=== PATIENT | female | born 1985 | race African-American/Black ===

== ENCOUNTER 2020-08-18 18:29 | Inpatient (IN) | payer OTHER ==
[2020-08-18] MEDS ORDERED: ALBUTEROL 2.5 MG/3 ML NEBU IH ONE (20:43)
[2020-08-18] MEDS ORDERED: ACETAMINOPHEN 325 MG TAB PO ONE (20:46)
--- NOTE | 2020-08-18 20:47 | Event Note ---
ED Screening Note Date of service: 08/18/20 Time: 20:45 ED Screening Note: This initial assessment/diagnostic orders/clinical plan/treatment(s) is/are subject to change based on patients health status, clinical progression and re- assessment by fellow clinical providers in the ED. Further treatment and workup at subsequent clinical providers discretion. Patient/guardian urged not to elope from the ED as their condition may be serious if not clinically assessed and managed. Initial orders include: This is a 34-year-old female she comes in stating that she has been Covid positive for 1 week and now with fever cough and short of breath. Her past medical history is of asthma. Her temperature is 102.7 lungs with decreased breath sounds few scattered wheezes. Labs chest x-ray
[2020-08-18 21:07] LABS: Hematocrit 28.1 % (30.3-42.9); Hemoglobin 8.5 gm/dl (10.1-14.3); Mean Corpuscular HGB Conc 30 % (30-34); Platelet Count 435 K/mm3 (140-440); Red Blood Count 5.19 M/mm3 (3.65-5.03); Red Cell Distribution Width 19.9 % (13.2-15.2)
[2020-08-18 21:17] LABS: Mean Corpuscular Volume 54 fl (79-97)
--- NOTE | 2020-08-18 21:23 | XRay Report ---
CHEST PA AND LATERAL VIEWS INDICATION: COVID +SOB. COMPARISON: 06/18/2018 FINDINGS: Support devices: None Heart: Normal and unchanged Lungs/Pleura: Moderately extensive, patchy bilateral lung disease, consistent with Covid pneumonia. IMPRESSION: 1. Moderate bilateral lung disease. Signer Name: Arnulfo Minaya MD Signed: 08/18/2020 9:19 PM Workstation Name: [id number]
[2020-08-18 21:30] LABS: Blood Urea Nitrogen 8 mg/dL (7-17); Calcium 8.8 mg/dL (8.4-10.2); Hemolysis Index 0
[2020-08-18 21:31] LABS: BUN/Creatinine Ratio 13
--- NOTE | 2020-08-18 21:31 | Emergency Department Report ---
ED Shortness of Breath HPI - General Chief Complaint: Dyspnea/Respdistress Stated Complaint: BREATHING ISSUES/HEADACHE/COVID Time Seen by Provider: 08/18/20 21:18 Source: patient Mode of arrival: Ambulatory Limitations: No Limitations - History of Present Illness Initial Comments: 34-year-old female, history of asthma, PCOS, presents to ED with difficulty breathing. Patient is Covid positive. She has been symptomatic for the last week, reporting fever, cough, shortness of breath, body aches, loss of smell and taste. Patient states she has been using her inhaler and nebulizer machine at home without relief. Patient states she contracted Covid from her mother whom she lives with. MD Complaint: shortness of breath -: week(s) (1) Severity: moderate Consistency: constant Improves With: nothing Worsens With: exertion Known History Of: asthma Context: recent URI Associated Symptoms: fever, cough Treatments Prior to Arrival: bronchodilator - Related Data Home Oxygen Therapy: No Home Medications Medication Instructions Recorded Confirmed Last Taken Montelukast 10 mg PO HS 08/19/20 08/19/20 Unknown Previous Rx's Medication Instructions Recorded Last Taken Type Azithromycin [Zithromax Z-ELVIS] 250 mg PO DAILY #1 pack 06/18/18 Unknown Rx Lansoprazole [Prevacid] 15 mg PO BID #30 cap 06/18/18 Unknown Rx Allergies Allergy/AdvReac Type Severity Reaction Status Date / Time No Known Allergies Allergy Unverified 06/18/18 10:20 ED Review of Systems ROS: Stated complaint: BREATHING ISSUES/HEADACHE/COVID Other details as noted in HPI Comment: All other systems reviewed and negative Constitutional: fever ENT: other (Reports loss of smell and taste) Respiratory: cough, shortness of breath Musculoskeletal: myalgia ED Past Medical Hx - Past Medical History Previous Medical History?: Yes Hx Hypertension: Yes Hx Asthma: Yes Additional medical history: PCOS - Surgical History Past Surgical History?: Yes Additional Surgical History: HERNIA/ CYST/ SINUS / TUBAL - Social History Smoking Status: Never Smoker Substance Use Type: None - Medications Home Medications: Home Medications Medication Instructions Recorded Confirmed Last Taken Type Azithromycin [Zithromax Z-ELVIS] 250 mg PO DAILY #1 pack 06/18/18 08/19/20 Unknown Rx Lansoprazole [Prevacid] 15 mg PO BID #30 cap 06/18/18 08/19/20 Unknown Rx Montelukast 10 mg PO HS 08/19/20 08/19/20 Unknown History ED Physical Exam - General Limitations: No Limitations General appearance: alert - Head Head exam: Present: atraumatic, normocephalic - Eye Eye exam: Present: normal appearance, EOMI - ENT ENT exam: Present: mucous membranes moist - Neck Neck exam: Present: normal inspection - Respiratory Respiratory exam: Present: normal lung sounds bilaterally, other (Tachypneic). Absent: wheezes - Cardiovascular Cardiovascular Exam: Present: normal rhythm, tachycardia - GI/Abdominal GI/Abdominal exam: Present: soft. Absent: distended, tenderness - Extremities Exam Extremities exam: Present: normal inspection. Absent: pedal edema, calf tenderness - Neurological Exam Neurological exam: Present: alert, oriented X3 - Psychiatric Psychiatric exam: Present: normal affect, normal mood - Skin Skin exam: Present: warm, dry, intact, normal color ED Course Vital Signs 08/18/20 08/18/20 08/18/20 20:28 20:41 22:25 Temperature 102.7 F H 98.7 F Pulse Rate 135 H 102 H Respiratory 22 20 26 H Rate Blood Pressure 149/84 152/74 Blood Pressure [Right] O2 Sat by Pulse 88 95 Oximetry 08/18/20 08/18/20 08/19/20 22:34 23:00 00:00 Temperature 98.9 F Pulse Rate 121 H 119 H 113 H Respiratory 28 H 28 H 22 Rate Blood Pressure Blood Pressure 127/81 131/82 118/76 [Right] O2 Sat by Pulse 97 95 95 Oximetry ED Medical Decision Making - Lab Data Result diagrams: 08/18/20 20:45 08/18/20 21:53 - EKG Data -: EKG Interpreted by [facility] EKG shows normal: sinus rhythm, axis, intervals, QRS complexes, ST-T waves Rate: tachycardia - EKG Data Interpretation: no acute changes - Radiology Data Radiology results: report reviewed, image reviewed - Medical Decision Making 34-year-old female with COVID-19 presents to ED with difficulty breathing. O2 sats 88% on room air. Patient requiring 4 L O2 via nasal cannula. Chest x-ray shows bilateral pneumonia. Blood cultures drawn. Patient given Rocephin, azithromycin, Decadron. Patient will be admitted to hospitalist, Dr. Vanegas, for further management. - Differential Diagnosis Pneumonia, COVID-19 Critical Care Time: Yes Critical care time in (mins) excluding proc time.: 35 Critical care attestation.: If time is entered above; I have spent that time in minutes in the direct care of this critically ill patient, excluding procedure time. Critical Care Time: 35 min ED Disposition Clinical Impression: Acute hypoxemic respiratory failure due to COVID-19, Pneumonia Disposition: [id number] OP ADMIT IP TO THIS HOSP Is pt being admited?: Yes Condition: Stable Time of Disposition: 22:53
[2020-08-18] MEDS ORDERED: DEXAMETHASONE 4 MG TAB PO ONE (21:32)
[2020-08-18] MEDS ORDERED: cefTRIAXone/NS 1 GM/50 ML 1 GM/50 ML BAG IV ONE (21:32)
[2020-08-18] MEDS ORDERED: AZITHROMYCIN 250 MG TAB PO ONE (21:32)
[2020-08-18 22:46] LABS: INR 0.91 (0.87-1.13)
[2020-08-18 22:47] LABS: Alanine Aminotransferase 39 units/L (7-56); Albumin 3.8 g/dL (3.9-5); Partial Thromboplastin Time 35.8 Sec. (24.2-36.6)
[2020-08-18 22:54] LABS: Bilirubin,Direct < 0.2 mg/dL (0-0.2)
[2020-08-18 23:19] LABS: Anisocytosis Few; Hypochromasia 1+; Total Cells Counted 100
[2020-08-18] MEDS ORDERED: ONDANSETRON 4 MG/2 ML INJ IV PRN (23:26)
[2020-08-18] MEDS ORDERED: MAGNESIUM HYDROXIDE (MOM) ORAL LIQD UDC PO PRN (23:26)
[2020-08-18] MEDS ORDERED: MORPHINE 2 MG/1 ML INJ IV PRN (23:26)
[2020-08-18] MEDS ORDERED: ACETAMINOPHEN 325 MG TAB PO PRN (23:26)
--- NOTE | 2020-08-18 23:36 | History and Physical Report ---
History of Present Illness Date of examination: 08/18/20 Date of admission: 08/18/2020 Chief complaint: Cough Shortness of breath History of present illness: 34-year-old female with known history of asthma, hypertension presenting to the emergency room today complaining of difficulty breathing for about 1 week. She was diagnosed with COVID-19 at an outside facility sometime last week. She has had some fever, cough, generalized body aches and pain, loss of taste and smell. Patient denies any nausea vomiting, no abdominal pain, no hematuria or dysuria, no headache or dizziness. Patient has used her nebulizing treatment at home without any significant improv ement. Patient indicates that mother whom she lives with at home is also Covid positive. Work-up in the emergency room reveals bilateral infiltrate on the chest x-ray. Patient admitted with pneumonia secondary to COVID-19. Past History Past Medical History: hypertension, other (Asthma) Past Surgical History: hernia repair, Other (Sinus surgery, tubal ligation) Social history: no significant social history Family history: no significant family history Medications and Allergies Allergies Allergy/AdvReac Type Severity Reaction Status Date / Time No Known Allergies Allergy Unverified 06/18/18 10:20 Home Medications Medication Instructions Recorded Confirmed Last Taken Type Azithromycin [Zithromax Z-ELVIS] 250 mg PO DAILY #1 pack 06/18/18 08/19/20 Unknown Rx Lansoprazole [Prevacid] 15 mg PO BID #30 cap 06/18/18 08/19/20 Unknown Rx Montelukast 10 mg PO HS 08/19/20 08/19/20 Unknown History Active Meds: Active Medications Acetaminophen (Acetaminophen 325 Mg Tab) 650 mg PO Q4H PRN PRN Reason: Pain MILD(1-3)/Fever >100.5/CARPENTER Enoxaparin Sodium (Enoxaparin 40 Mg/0.4 Ml Inj) 40 mg SUB-Q QDAY@2200 VANESA; Protocol Ceftriaxone Sodium (Rocephin/Ns 2 Gm/100 Ml) 2 gm in 100 mls @ 200 mls/hr IV Q24H VANESA; Protocol Azithromycin (Zithromax/Ns) 500 mg in 250 mls @ 250 mls/hr IV Q24H VANESA; Protocol Magnesium Hydroxide (Magnesium Hydroxide (Mom) Oral Liqd Udc) 30 ml PO Q4H PRN PRN Reason: Constipation Morphine Sulfate (Morphine 2 Mg/1 Ml Inj) 2 mg IV Q4H PRN PRN Reason: Pain, Moderate (4-6) Ondansetron HCl (Ondansetron 4 Mg/2 Ml Inj) 4 mg IV Q8H PRN PRN Reason: Nausea And Vomiting Sodium Chloride (Sodium Chloride 0.9% 10 Ml Flush Syringe) 10 ml IV BID VANESA Sodium Chloride (Sodium Chloride 0.9% 10 Ml Flush Syringe) 10 ml IV PRN PRN PRN Reason: LINE FLUSH Review of Systems Constitutional: fever, chills Ears, nose, mouth and throat: no nasal congestion, no sore throat Cardiovascular: no chest pain, no palpitations Respiratory: cough, shortness of breath Gastrointestinal: no abdominal pain, no nausea, no vomiting, no diarrhea Genitourinary Female: no pelvic pain, no flank pain, no dysuria, no hematuria Musculoskeletal: no neck pain, no low back pain Integumentary: no rash, no pruritis Neurological: no headaches, no confusion Psychiatric: no anxiety, no depression Exam - Constitutional Vitals: Temp Pulse Resp BP Pulse Ox 102.7 F H 121 H 28 H 127/81 97 08/18/20 20:28 08/18/20 22:34 08/18/20 22:34 08/18/20 22:34 08/18/20 22:34 General appearance: Present: no acute distress, well-nourished - EENT Eyes: Present: PERRL, EOM intact. Absent: scleral icterus ENT: hearing intact, clear oral mucosa, dentition normal - Neck Neck: Present: normal ROM - Respiratory Respiratory effort: normal Respiratory: bilateral: diminished - Cardiovascular Rhythm: regular Heart Sounds: Present: S1 & S2. Absent: gallop, systolic murmur, diastolic murmur, rub - Extremities Extremities: no ischemia, pulses intact, pulses symmetrical, No edema, Full ROM Peripheral Pulses: within normal limits - Abdominal General gastrointestinal: Present: soft, non-tender, non-distended, normal bowel sounds. Absent: mass - Integumentary Integumentary: Present: clear, warm, dry. Absent: rash - Musculoskeletal Musculoskeletal: strength equal bilaterally - Psychiatric Psychiatric: appropriate mood/affect, intact judgment & insight, memory intact, cooperative - Neurologic Neurologic: CNII-XII intact, no focal deficits, moves all extremities Results - Labs CBC & Chem 7: 08/18/20 20:45 08/18/20 21:53 Labs: Abnormal lab results 08/18/20 08/18/20 08/18/20 Range/Units 20:45 20:45 21:53 RBC 5.19 H (3.65-5.03) M/mm3 Hgb 8.5 L (10.1-14.3) gm/dl Hct 28.1 L (30.3-42.9) % MCV 54 L (79-97) fl MCH 16 L (28-32) pg RDW 19.9 H (13.2-15.2) % Seg Neuts % (Manual) 76.0 H (40.0-70.0) % Lymphocytes # (Manual) 1.0 L (1.2-5.4) K/mm3 PT 12.1 L (12.2-14.9) Sec. D-Dimer 284.01 H (0-234) ng/mlDDU Sodium 136 L (137-145) mmol/L Glucose 125 H (65-100) mg/dL Alkaline Phosphatase (35-129) units/L Albumin (3.9-5) g/dL 08/18/20 Range/Units 21:53 RBC (3.65-5.03) M/mm3 Hgb (10.1-14.3) gm/dl Hct (30.3-42.9) % MCV (79-97) fl MCH (28-32) pg RDW (13.2-15.2) % Seg Neuts % (Manual) (40.0-70.0) % Lymphocytes # (Manual) (1.2-5.4) K/mm3 PT (12.2-14.9) Sec. D-Dimer (0-234) ng/mlDDU Sodium (137-145) mmol/L Glucose 126 H (65-100) mg/dL Alkaline Phosphatase 138 H (35-129) units/L Albumin 3.8 L (3.9-5) g/dL Assessment and Plan - Patient Problems (1) Pneumonia Current Visit: Yes Status: Acute Plan to address problem: Placed on empiric IV antibiotics. We will await culture results. (2) Acute hypoxemic respiratory failure due to COVID-19 Current Visit: Yes Status: Acute Plan to address problem: Possibly secondary to the underlying pneumonia with Covid. She was diagnosed with COVID-19 about a week ago. We will keep O2 saturation greater or equal to 94%. Consult will be placed to infectious disease and pulmonology for evaluation and recommendation. (3) DVT prophylaxis Current Visit: Yes Status: Acute Plan to address problem: Patient placed on subcutaneous Lovenox. (4) Full code status Current Visit: Yes Status: Acute Plan to address problem: Patient is a full code.
[2020-08-19 06:09] LABS: Mean Corpuscular HGB Conc 29 % (30-34); Platelet Count 404 K/mm3 (140-440); Red Blood Count 4.97 M/mm3 (3.65-5.03); Red Cell Distribution Width 19.5 % (13.2-15.2)
[2020-08-19 06:13] LABS: Hematocrit 27.4 % (30.3-42.9); Mean Corpuscular Volume 55 fl (79-97)
[2020-08-19 06:20] LABS: INR 0.98 (0.87-1.13)
[2020-08-19 06:32] LABS: Blood Urea Nitrogen 11 mg/dL (7-17); Calcium 8.6 mg/dL (8.4-10.2); Hemolysis Index 3
[2020-08-19 06:36] LABS: BUN/Creatinine Ratio 22
[2020-08-19 07:14] LABS: Total Cells Counted 100
[2020-08-19 07:15] LABS: Anisocytosis 1+; Hypochromasia 1+; Platelet Estimate Consistent w Auto
[2020-08-19] MEDS: cefTRIAXone/NS 2 GM/100 ML 2 GM/100 ML BAG IV SCH (09:01)
[2020-08-19] MEDS ORDERED: dexAMETHasone 4 MG/ML VIAL IV SCH (10:00)
--- NOTE | 2020-08-19 10:34 | Consultation ---
History of Present Illness - Reason for Consult Consult date: 08/19/20 - History of Present Illness 34-year-old female past medical history asthma, hypertension, obesity presented to the hospital complaining of shortness of breath. This began approximately 1 week prior to admission, and she was diagnosed with COVID-19 as an outpatient last week. She complains of associated fevers, cough, myalgias. She otherwise denies any symptoms. She notes that her mother is also Covid positive with whom she lives. Febrile on admission 102.7 with tachycardia and tachypnea. Currently on ceftriaxone and azithromycin. White count 4.7, elevated inflammatory markers. Covid testing pending. Imaging personally reviewed: Chest x-ray: Moderate bilateral lung disease Review of systems: Deferred due to PPE conservation strategy. Past History Past Medical History: hypertension, other (Asthma) Past Surgical History: hernia repair, Other (Sinus surgery, tubal ligation) Social history: no significant social history Family history: no significant family history Medications and Allergies Allergies Allergy/AdvReac Type Severity Reaction Status Date / Time No Known Allergies Allergy Unverified 06/18/18 10:20 Home Medications Medication Instructions Recorded Confirmed Last Taken Type Azithromycin [Zithromax Z-ELVIS] 250 mg PO DAILY #1 pack 06/18/18 08/19/20 Unknown Rx Lansoprazole [Prevacid] 15 mg PO BID #30 cap 06/18/18 08/19/20 Unknown Rx Montelukast 10 mg PO HS 08/19/20 08/19/20 Unknown History Active Meds: Active Medications Acetaminophen (Acetaminophen 325 Mg Tab) 650 mg PO Q4H PRN PRN Reason: Pain MILD(1-3)/Fever >100.5/[place] Dexamethasone (Dexamethasone 4 Mg/Ml Vial) 6 mg IV Q24HR VANESA Last Admin: 08/19/20 09:01 Dose: 6 mg Documented by: Enoxaparin Sodium (Enoxaparin 40 Mg/0.4 Ml Inj) 40 mg SUB-Q QDAY@2200 VANESA; Protocol Ceftriaxone Sodium (Rocephin/Ns 2 Gm/100 Ml) 2 gm in 100 mls @ 200 mls/hr IV Q24HR VANESA; Protocol Last Admin: 08/19/20 09:01 Dose: 200 mls/hr Documented by: Azithromycin (Zithromax/Ns) 500 mg in 250 mls @ 250 mls/hr IV Q24HR VANESA; Protocol Magnesium Hydroxide (Magnesium Hydroxide (Mom) Oral Liqd Udc) 30 ml PO Q4H PRN PRN Reason: Constipation Morphine Sulfate (Morphine 2 Mg/1 Ml Inj) 2 mg IV Q4H PRN PRN Reason: Pain, Moderate (4-6) Ondansetron HCl (Ondansetron 4 Mg/2 Ml Inj) 4 mg IV Q8H PRN PRN Reason: Nausea And Vomiting Sodium Chloride (Sodium Chloride 0.9% 10 Ml Flush Syringe) 10 ml IV BID VANESA Last Admin: 08/19/20 09:02 Dose: 10 ml Documented by: Sodium Chloride (Sodium Chloride 0.9% 10 Ml Flush Syringe) 10 ml IV PRN PRN PRN Reason: LINE FLUSH Physical Examination - Physical Exam Narrative exam: Physical exam deferred due to PPE conservation strategy. Please refer to primary team's note. - Constitutional Vitals: Vital Signs Temp Pulse Resp BP Pulse Ox 98.8 F 100 H 22 103/62 88 08/19/20 05:16 08/19/20 05:16 08/19/20 05:16 08/19/20 05:16 08/19/20 05:16 Temperature -Last 24 Hours Temperature 98.8 F Temperature 99.9 F Temperature 98.9 F Temperature 98.7 F Temperature 102.7 F Results - Labs CBC & Chem 7: 08/19/20 05:00 08/19/20 05:00 Labs: Abnormal lab results 08/18/20 08/18/20 08/18/20 Range/Units 20:45 20:45 21:53 RBC 5.19 H (3.65-5.03) M/mm3 Hgb 8.5 L (10.1-14.3) gm/dl Hct 28.1 L (30.3-42.9) % MCV 54 L (79-97) fl MCH 16 L (28-32) pg MCHC (30-34) % RDW 19.9 H (13.2-15.2) % Seg Neuts % (Manual) 76.0 H (40.0-70.0) % Lymphocytes # (Manual) 1.0 L (1.2-5.4) K/mm3 PT 12.1 L (12.2-14.9) Sec. D-Dimer 284.01 H (0-234) ng/mlDDU Sodium 136 L (137-145) mmol/L Creatinine (0.6-1.2) mg/dL Glucose 125 H (65-100) mg/dL Alkaline Phosphatase (35-129) units/L Lactate Dehydrogenase (91-180) units/L C-Reactive Protein (0.00-1.30) mg/dL Albumin (3.9-5) g/dL 08/18/20 08/19/20 08/19/20 Range/Units 21:53 05:00 05:00 RBC (3.65-5.03) M/mm3 Hgb 8.0 L (10.1-14.3) gm/dl Hct 27.4 L (30.3-42.9) % MCV 55 L (79-97) fl MCH 16 L (28-32) pg MCHC 29 L (30-34) % RDW 19.5 H (13.2-15.2) % Seg Neuts % (Manual) 78.0 H (40.0-70.0) % Lymphocytes # (Manual) 0.8 L (1.2-5.4) K/mm3 PT (12.2-14.9) Sec. D-Dimer (0-234) ng/mlDDU Sodium (137-145) mmol/L Creatinine 0.5 L (0.6-1.2) mg/dL Glucose 126 H 176 H (65-100) mg/dL Alkaline Phosphatase 138 H (35-129) units/L Lactate Dehydrogenase 534 H (91-180) units/L C-Reactive Protein 7.60 H (0.00-1.30) mg/dL Albumin 3.8 L (3.9-5) g/dL Assessment and Plan Cultures: Blood culture pending COVID-19 positive as an outpatient A/P: 34-year-old female past medical history obesity, asthma, hypertension admitted with bilateral pneumonia #Acute hypoxemic respiratory failure: Likely secondary to COVID-19 infection. Hypoxic on admission to 88% #Acute sepsis: Present with fevers, tachycardia, tachypnea. Secondary to COVID- 19 #COVID-19 pneumonia: Patient presented with a week of symptoms, chest x-ray with bilateral infiltrates, admission O2 sats 88&% on room air. Inflammatory markers elevated #Obesity Recs: -Dexamethasone 6 mg IV/PO daily for 10 days -Remdesivir 200 mg IV q day x 1 followed by 100 mg IV q day x 4 days -Obtain q48-72h inflammatory markers - ferritin, Ddimer, CRP, LDH -Continue ceftriaxone 2 gm IV qday and azithromycin 500 mg PO qday, if procalcitonin <0.25 ng/mL stop antibiotics -Anticoagulation per hospital protocol -Proning as able Thank you for the consult, we will continue to follow. Tia Patterson MD [facility] O: [phone] F: [phone]
[2020-08-19] MEDS: AZITHROMYCIN/NS 500 MG/250 ML 500 MG/250 ML BAG IV SCH (11:28)
[2020-08-19] MEDS ORDERED: REMDESIVIR 200 MG in SODIUM CHLORIDE 0.9% 250ML 250 ML IV ONE (11:30)
[2020-08-19] MEDS ORDERED: REMDESIVIR 100 MG VIAL IV ONE (11:30)
--- NOTE | 2020-08-19 12:22 | Progress Note ---
Assessment and Plan Assessment and plan: 34-year-old female with known history of asthma, hypertension presenting to the emergency room today complaining of difficulty breathing for about 1 week. She was diagnosed with COVID-19 at an outside facility sometime last week. She has had some fever, cough, generalized body aches and pain, loss of taste and smell. Patient denies any nausea vomiting, no abdominal pain, no hematuria or dysuria, no headache or dizziness. Patient has used her nebulizing treatment at home without any significant im provement. Patient indicates that mother whom she lives with at home is also Covid positive. Patient admitted with pneumonia secondary to COVID-19. Chest x-ray shows bilateral pulmonary Acute hypoxemic respiratory failure Sepsis secondary to Covid pneumonia Covid pneumonia Obesity Plan Continue dexamethasone and remdesivir as prescribed by infectious disease physician Inflammatory markers every 48-72 hours Antibiotics. While awaiting procalcitonin Patient was saturating 88% while on room air on admission if no improvement in respiratory status in a.m. we will obtain pulmonary consult We will start patient on vitamins in addition to incentive spirometer. Encourage patient to prone DVT and GI prophylaxis Weight loss management discussed in detail History Interval history: Patient seen and examined reports some cough and shortness of breath still. Hospitalist Physical - Physical exam Narrative exam: VITAL SIGNS: Reviewed. GENERAL: The patient appears normally developed, Vital signs as documented. HEAD: No signs of head trauma. EYES: Pupils are equal. Extraocular motions intact. EARS: Hearing grossly intact. MOUTH: Oropharynx is normal. NECK: No adenopathy, no JVD. CHEST: Chest with diminished breath sounds bilaterally. No wheezes, rales, or rhonchi. CARDIAC: Regular rate and rhythm. S1 and S2, without murmurs, gallops, or rubs. VASCULAR: No Edema. Peripheral pulses normal and equal in all extremities. ABDOMEN: Soft, non tender and non distended. No rebound or guarding, and no masses palpated. Bowel Sounds normal. MUSCULOSKELETAL: Good range of motion of all major joints. Extremities without clubbing, cyanosis or edema. NEUROLOGIC EXAM: Alert and oriented x 3 No focal sensory or strength deficits. Speech normal. Follows commands. PSYCHIATRIC: Mood normal. SKIN: detail exam as documented in skin assessment - Constitutional Vitals: Temp Pulse Resp BP Pulse Ox 98.8 F 100 H 22 103/62 88 08/19/20 05:16 08/19/20 05:16 08/19/20 05:16 08/19/20 05:16 08/19/20 05:16 General appearance: Present: no acute distress, well-nourished Results - Labs CBC & Chem 7: 08/19/20 05:00 08/19/20 05:00 Labs: Laboratory Last Values WBC 4.7 K/mm3 (4.5-11.0) 08/19/20 05:00 RBC 4.97 M/mm3 (3.65-5.03) 08/19/20 05:00 Hgb 8.0 gm/dl (10.1-14.3) L 08/19/20 05:00 Hct 27.4 % (30.3-42.9) L 08/19/20 05:00 MCV 55 fl (79-97) L 08/19/20 05:00 MCH 16 pg (28-32) L 08/19/20 05:00 MCHC 29 % (30-34) L 08/19/20 05:00 RDW 19.5 % (13.2-15.2) H 08/19/20 05:00 Plt Count 404 K/mm3 (140-440) 08/19/20 05:00 Add Manual Diff Complete 08/19/20 05:00 Total Counted 100 08/19/20 05:00 Seg Neuts % (Manual) 78.0 % (40.0-70.0) H 08/19/20 05:00 Band Neutrophils % 1.0 % 08/19/20 05:00 Lymphocytes % (Manual) 17.0 % (13.4-35.0) 08/19/20 05:00 Reactive Lymphs % (Man) 1.0 % 08/19/20 05:00 Monocytes % (Manual) 3.0 % (0.0-7.3) 08/19/20 05:00 Nucleated RBC % Not Reportable 08/19/20 05:00 Seg Neutrophils # Man 3.7 K/mm3 (1.8-7.7) 08/19/20 05:00 Band Neutrophils # 0.0 K/mm3 08/19/20 05:00 Lymphocytes # (Manual) 0.8 K/mm3 (1.2-5.4) L 08/19/20 05:00 Abs React Lymphs (Man) 0.0 K/mm3 08/19/20 05:00 Monocytes # (Manual) 0.1 K/mm3 (0.0-0.8) 08/19/20 05:00 Eosinophils # (Manual) 0.0 K/mm3 (0.0-0.4) 08/19/20 05:00 Basophils # (Manual) 0.0 K/mm3 (0.0-0.1) 08/19/20 05:00 Metamyelocytes # 0.0 K/mm3 08/19/20 05:00 Myelocytes # 0.0 K/mm3 08/19/20 05:00 Promyelocytes # 0.0 K/mm3 08/19/20 05:00 Blast Cells # 0.0 K/mm3 08/19/20 05:00 WBC Morphology Not Reportable 08/19/20 05:00 Hypersegmented Neuts Not Reportable 08/19/20 05:00 Hyposegmented Neuts Not Reportable 08/19/20 05:00 Hypogranular Neuts Not Reportable 08/19/20 05:00 Smudge Cells Not Reportable 08/19/20 05:00 Toxic Granulation Not Reportable 08/19/20 05:00 Toxic Vacuolation Not Reportable 08/19/20 05:00 Dohle Bodies Not Reportable 08/19/20 05:00 Pelger-Huet Anomaly Not Reportable 08/19/20 05:00 Meka Rods Not Reportable 08/19/20 05:00 Platelet Estimate Consistent w auto 08/19/20 05:00 Clumped Platelets Not Reportable 08/19/20 05:00 Plt Clumps, EDTA Not Reportable 08/19/20 05:00 Large Platelets Not Reportable 08/19/20 05:00 Giant Platelets Not Reportable 08/19/20 05:00 Platelet Satelliting Not Reportable 08/19/20 05:00 Plt Morphology Comment Not Reportable 08/19/20 05:00 RBC Morphology Not Reportable 08/19/20 05:00 Dimorphic RBCs Not Reportable 08/19/20 05:00 Polychromasia Not Reportable 08/19/20 05:00 Hypochromasia 1+ 08/19/20 05:00 Poikilocytosis Not Reportable 08/19/20 05:00 Anisocytosis 1+ 08/19/20 05:00 Microcytosis 1+ 08/19/20 05:00 Macrocytosis Not Reportable 08/19/20 05:00 Spherocytes Not Reportable 08/19/20 05:00 Pappenheimer Bodies Not Reportable 08/19/20 05:00 Sickle Cells Not Reportable 08/19/20 05:00 Target Cells Not Reportable 08/19/20 05:00 Tear Drop Cells Not Reportable 08/19/20 05:00 Ovalocytes Not Reportable 08/19/20 05:00 Helmet Cells Not Reportable 08/19/20 05:00 [place] Bodies Not Reportable 08/19/20 05:00 Townley Rings Not Reportable 08/19/20 05:00 [place]urah Cells Not Reportable 08/19/20 05:00 Bite Cells Not Reportable 08/19/20 05:00 Crenated Cell Not Reportable 08/19/20 05:00 Elliptocytes Not Reportable 08/19/20 05:00 Acanthocytes (Spur) Not Reportable 08/19/20 05:00 Rouleaux Not Reportable 08/19/20 05:00 Hemoglobin C Crystals Not Reportable 08/19/20 05:00 Schistocytes Not Reportable 08/19/20 05:00 Malaria parasites Not Reportable 08/19/20 05:00 David Bodies Not Reportable 08/19/20 05:00 Hem Pathologist Commnt No 08/19/20 05:00 PT 12.9 Sec. (12.2-14.9) 08/19/20 05:00 INR 0.98 (0.87-1.13) 08/19/20 05:00 APTT 35.8 Sec. (24.2-36.6) 08/18/20 21:53 D-Dimer 284.01 ng/mlDDU (0-234) H 08/18/20 21:53 Sodium 139 mmol/L (137-145) 08/19/20 05:00 Potassium 4.4 mmol/L (3.6-5.0) 08/19/20 05:00 Chloride 102.5 mmol/L (98-107) 08/19/20 05:00 Carbon Dioxide 25 mmol/L (22-30) 08/19/20 05:00 Anion Gap 16 mmol/L 08/19/20 05:00 BUN 11 mg/dL (7-17) 08/19/20 05:00 Creatinine 0.5 mg/dL (0.6-1.2) L 08/19/20 05:00 Estimated GFR > 60 ml/min 08/19/20 05:00 BUN/Creatinine Ratio 22 % 08/19/20 05:00 Glucose 176 mg/dL (65-100) H 08/19/20 05:00 POC Glucose 161 mg/dL (70-105) H 08/19/20 11:50 Calcium 8.6 mg/dL (8.4-10.2) 08/19/20 05:00 Ferritin 84.2 ng/mL (10.0-200.0) 08/18/20 21:53 Total Bilirubin 0.30 mg/dL (0.1-1.2) 08/18/20 21:53 Direct Bilirubin < 0.2 mg/dL (0-0.2) 08/18/20 21:53 Indirect Bilirubin 0.1 mg/dL 08/18/20 21:53 AST 40 units/L (5-40) 08/18/20 21:53 ALT 39 units/L (7-56) 08/18/20 21:53 Alkaline Phosphatase 138 units/L (35-129) H 08/18/20 21:53 Lactate Dehydrogenase 534 units/L (91-180) H 08/18/20 21:53 C-Reactive Protein 7.60 mg/dL (0.00-1.30) H 08/18/20 21:53 Total Protein 7.0 g/dL (6.3-8.2) 08/18/20 21:53 Albumin 3.8 g/dL (3.9-5) L 08/18/20 21:53 Albumin/Globulin Ratio 1.2 % 08/18/20 21:53 Microbiology: Microbiology 08/18/20 21:53 Peripheral/Venous Blood Culture - Preliminary Culture in Progress 08/18/20 22:09 Peripheral/Venous Blood Culture - Preliminary Culture in Progress Silvestre/IV: Voiding Method Toilet IV Catheter Type [Right Peripheral IV Antecubital] Active Medications - Current Medications Current Medications: Generic Name Dose Route Start Last Admin Trade Name Freq PRN Reason Stop Dose Admin Acetaminophen 650 mg 08/18/20 23:26 Acetaminophen 325 Mg Tab PO Q4H PRN Pain MILD(1-3)/Fever >100.5/[facility]PENTER Dexamethasone 6 mg 08/19/20 10:00 08/19/20 09:01 Dexamethasone 4 Mg/Ml Vial IV 08/28/20 10:01 6 mg Q24HR [facility] Administration Enoxaparin Sodium 40 mg 08/19/20 22:00 Enoxaparin 40 Mg/0.4 Ml Inj SUB-Q QDAY@2200 [facility] Protocol Ceftriaxone Sodium 2 gm in 100 mls @ 200 mls/hr 08/19/20 10:00 08/19/20 09:01 Rocephin/Ns 2 Gm/100 Ml IV 200 mls/hr Q24HR [facility] Administration Protocol Azithromycin 500 mg in 250 mls @ 250 mls/hr 08/19/20 10:00 08/19/20 11:28 Zithromax/Ns IV 250 mls/hr Q24HR [facility] Administration Protocol REMDESIVIR 100 mg/ Sodium 250 mls @ 500 mls/hr 08/20/20 21:00 Chloride IV 08/23/20 21:29 Q24HR@2100 [facility] Magnesium Hydroxide 30 ml 08/18/20 23:26 Magnesium Hydroxide (Mom) Oral Liqd Udc PO Q4H PRN Constipation Morphine Sulfate 2 mg 08/18/20 23:26 Morphine 2 Mg/1 Ml Inj IV Q4H PRN Pain, Moderate (4-6) Ondansetron HCl 4 mg 08/18/20 23:26 Ondansetron 4 Mg/2 Ml Inj IV Q8H PRN Nausea And Vomiting Sodium Chloride 10 ml 08/19/20 10:00 08/19/20 09:02 Sodium Chloride 0.9% 10 Ml Flush Syringe IV 10 ml BID [facility] Administration Sodium Chloride 10 ml 08/18/20 23:26 Sodium Chloride 0.9% 10 Ml Flush Syringe IV PRN PRN LINE FLUSH Sodium Chloride 50 ml 08/19/20 11:30 Sodium Chloride 0.9% 50 Ml Ivpb IV 08/23/20 21:01 Q24HR@2100 [facility]
[2020-08-19] MEDS: guaiFENesin DM 200/20 MG ORAL LIQD 10 ML PO PRN ×2 (14:02→18:22)
[2020-08-19] MEDS: SODIUM CHLORIDE 0.9% 50 ML IVPB IV SCH (14:29)
[2020-08-19] MEDS ORDERED: ALPRAZolam 0.25 MG TAB PO PRN (17:21)
--- NOTE | 2020-08-19 19:47 | Consultation ---
History of Present Illness Consult date: 08/19/20 Requesting physician: JEREMY CASEY Reason for consult: dyspnea History of present illness: 34-year-old female with known history of asthma, hypertension presenting to the emergency room today complaining of difficulty breathing for about 1 week. She was diagnosed with COVID-19 at an outside facility sometime last week. She has had some fever, cough, generalized body aches and pain, loss of taste and smell. Patient denies any nausea vomiting, no abdominal pain, no hematuria or dysuria, no headache or dizziness. Patient has used her nebulizer treatment at home without any significant improvement. Patient indicates that mother whom she lives with at home is also Covid positive. Work-up in the emergency room reveals bilateral infiltrate on the chest x-ray. Patient admitted with pneumonia secondary to COVID-19. Currently on HFNC 30LPM and 55% FiO2. Active Medications Acetaminophen (Acetaminophen 325 Mg Tab) 650 mg PO Q4H PRN PRN Reason: Pain MILD(1-3)/Fever >100.5/[place] Alprazolam (Alprazolam 0.25 Mg Tab) 0.25 mg PO Q8H PRN PRN Reason: Anxiety Last Admin: 08/19/20 18:17 Dose: 0.25 mg Documented by: Ascorbic Acid (Ascorbic Acid 500 Mg Tab) 1,000 mg PO BID [facility] Cholecalciferol (Cholecalciferol (Vit D3) 5,000 Unit Tab) 5,000 unit PO DAILY [facility] Dexamethasone (Dexamethasone 4 Mg/Ml Vial) 6 mg IV Q24HR [facility] Stop: 08/28/20 10:01 Last Admin: 08/19/20 09:01 Dose: 6 mg Documented by: Enoxaparin Sodium (Enoxaparin 40 Mg/0.4 Ml Inj) 40 mg SUB-Q QDAY@2200 [facility]; Protocol Guaifenesin (Guaifenesin Dm 200/20 Mg Oral Liqd 10 Ml) 10 ml PO Q4H PRN PRN Reason: Cough Last Admin: 08/19/20 18:22 Dose: 10 ml Documented by: Ceftriaxone Sodium (Rocephin/Ns 2 Gm/100 Ml) 2 gm in 100 mls @ 200 mls/hr IV Q24HR [facility]; Protocol Last Admin: 08/19/20 09:01 Dose: 200 mls/hr Documented by: Azithromycin (Zithromax/Ns) 500 mg in 250 mls @ 250 mls/hr IV Q24HR [facility]; Protocol Last Admin: 08/19/20 11:28 Dose: 250 mls/hr Documented by: REMDESIVIR 100 mg/ Sodium (Chloride) 250 mls @ 500 mls/hr IV Q24HR@2100 [facility] Stop: 08/23/20 21:29 Magnesium Hydroxide (Magnesium Hydroxide (Mom) Oral Liqd Udc) 30 ml PO Q4H PRN PRN Reason: Constipation Morphine Sulfate (Morphine 2 Mg/1 Ml Inj) 2 mg IV Q4H PRN PRN Reason: Pain, Moderate (4-6) Last Admin: 08/19/20 12:23 Dose: 2 mg Documented by: Ondansetron HCl (Ondansetron 4 Mg/2 Ml Inj) 4 mg IV Q8H PRN PRN Reason: Nausea And Vomiting Sodium Chloride (Sodium Chloride 0.9% 10 Ml Flush Syringe) 10 ml IV BID [facility] Last Admin: 08/19/20 09:02 Dose: 10 ml Documented by: Sodium Chloride (Sodium Chloride 0.9% 10 Ml Flush Syringe) 10 ml IV PRN PRN PRN Reason: LINE FLUSH Sodium Chloride (Sodium Chloride 0.9% 50 Ml Ivpb) 50 ml IV Q24HR@2100 [facility] Stop: 08/23/20 21:01 Last Admin: 08/19/20 14:29 Dose: 50 ml Documented by: Zinc Sulfate (Zinc Sulfate 220 Mg Cap) 220 mg PO QDAY [facility] Past History Past Medical History: hypertension, other (Asthma) Past Surgical History: hernia repair, Other (Sinus surgery, tubal ligation) Social history: no significant social history, full code. denies: smoking, alcohol abuse, prescription drug abuse, IV drug use Family history: no significant family history (no pulm issues reported) Medications and Allergies Allergies Allergy/AdvReac Type Severity Reaction Status Date / Time No Known Allergies Allergy Unverified 06/18/18 10:20 Home Medications Medication Instructions Recorded Confirmed Last Taken Type Azithromycin [Zithromax Z-ELVIS] 250 mg PO DAILY #1 pack 06/18/18 08/19/20 Unknown Rx Lansoprazole [Prevacid] 15 mg PO BID #30 cap 06/18/18 08/19/20 Unknown Rx Montelukast 10 mg PO HS 08/19/20 08/19/20 Unknown History Active Meds: Active Medications Acetaminophen (Acetaminophen 325 Mg Tab) 650 mg PO Q4H PRN PRN Reason: Pain MILD(1-3)/Fever >100.5/[place] Alprazolam (Alprazolam 0.25 Mg Tab) 0.25 mg PO Q8H PRN PRN Reason: Anxiety Last Admin: 08/19/20 18:17 Dose: 0.25 mg Documented by: Ascorbic Acid (Ascorbic Acid 500 Mg Tab) 1,000 mg PO BID [facility] Cholecalciferol (Cholecalciferol (Vit D3) 5,000 Unit Tab) 5,000 unit PO DAILY [facility] Dexamethasone (Dexamethasone 4 Mg/Ml Vial) 6 mg IV Q24HR [facility] Stop: 08/28/20 10:01 Last Admin: 08/19/20 09:01 Dose: 6 mg Documented by: Enoxaparin Sodium (Enoxaparin 40 Mg/0.4 Ml Inj) 40 mg SUB-Q QDAY@2200 [facility]; Protocol Guaifenesin (Guaifenesin Dm 200/20 Mg Oral Liqd 10 Ml) 10 ml PO Q4H PRN PRN Reason: Cough Last Admin: 08/19/20 18:22 Dose: 10 ml Documented by: Ceftriaxone Sodium (Rocephin/Ns 2 Gm/100 Ml) 2 gm in 100 mls @ 200 mls/hr IV Q24HR [facility]; Protocol Last Admin: 08/19/20 09:01 Dose: 200 mls/hr Documented by: Azithromycin (Zithromax/Ns) 500 mg in 250 mls @ 250 mls/hr IV Q24HR [facility]; Protocol Last Admin: 08/19/20 11:28 Dose: 250 mls/hr Documented by: REMDESIVIR 100 mg/ Sodium (Chloride) 250 mls @ 500 mls/hr IV Q24HR@2100 [facility] Stop: 08/23/20 21:29 Magnesium Hydroxide (Magnesium Hydroxide (Mom) Oral Liqd Udc) 30 ml PO Q4H PRN PRN Reason: Constipation Morphine Sulfate (Morphine 2 Mg/1 Ml Inj) 2 mg IV Q4H PRN PRN Reason: Pain, Moderate (4-6) Last Admin: 08/19/20 12:23 Dose: 2 mg Documented by: Ondansetron HCl (Ondansetron 4 Mg/2 Ml Inj) 4 mg IV Q8H PRN PRN Reason: Nausea And Vomiting Sodium Chloride (Sodium Chloride 0.9% 10 Ml Flush Syringe) 10 ml IV BID [facility] Last Admin: 08/19/20 09:02 Dose: 10 ml Documented by: Sodium Chloride (Sodium Chloride 0.9% 10 Ml Flush Syringe) 10 ml IV PRN PRN PRN Reason: LINE FLUSH Sodium Chloride (Sodium Chloride 0.9% 50 Ml Ivpb) 50 ml IV Q24HR@2100 [facility] Stop: 08/23/20 21:01 Last Admin: 08/19/20 14:29 Dose: 50 ml Documented by: Zinc Sulfate (Zinc Sulfate 220 Mg Cap) 220 mg PO QDAY [facility] Review of Systems All systems: negative Physical Examination Vital signs: Vital Signs Temp Pulse Resp BP Pulse Ox 102.7 F H 135 H 22 149/84 88 08/18/20 20:28 08/18/20 20:28 08/18/20 20:28 08/18/20 20:28 08/18/20 20:28 Vital Signs - 24 hr 08/18/20 08/18/20 08/18/20 20:28 20:41 22:25 Temperature 102.7 F H 98.7 F Pulse Rate 135 H 102 H Respiratory 22 20 26 H Rate Blood Pressure 149/84 152/74 Blood Pressure [Right] O2 Sat by Pulse 88 95 Oximetry 08/18/20 08/18/20 08/19/20 22:34 23:00 00:00 Temperature 98.9 F Pulse Rate 121 H 119 H 113 H Respiratory 28 H 28 H 22 Rate Blood Pressure Blood Pressure 127/81 131/82 118/76 [Right] O2 Sat by Pulse 97 95 95 Oximetry 08/19/20 08/19/20 08/19/20 01:55 05:16 12:25 Temperature 99.9 F H 98.8 F 99.3 F Pulse Rate 107 H 100 H 100 H Respiratory 20 22 24 Rate Blood Pressure 107/68 103/62 96/53 Blood Pressure [Right] O2 Sat by Pulse 93 88 91 Oximetry 08/19/20 08/19/20 08/19/20 12:52 15:39 16:33 Temperature 98.4 F Pulse Rate 94 H Respiratory 22 Rate Blood Pressure 104/66 Blood Pressure [Right] O2 Sat by Pulse 93 86 95 Oximetry General appearance: no acute distress, alert Eyes: non-icteric Neck: supple Effort: normal Ascultation: Bilateral: rales Cardiovascular: regular rate and rhythm (no mrg) Gastrointestinal: normoactive bowel sounds, soft, non-tender Integumentary: normal Extremities: no cyanosis, no edema, pink and warm normal mental status, non-focal exam, pupils equal and round, CN II-XII normal mood appropriate, affect normal Results - Laboratory Findings CBC and BMP: 08/19/20 05:00 08/19/20 05:00 PT/INR, D-dimer PT 12.9 Sec. (12.2-14.9) 08/19/20 05:00 INR 0.98 (0.87-1.13) 08/19/20 05:00 D-Dimer 284.01 ng/mlDDU (0-234) H 08/18/20 21:53 Abnormal lab findings: Abnormal Labs 08/18/20 08/18/20 08/18/20 20:45 20:45 21:53 RBC 5.19 H Hgb 8.5 L Hct 28.1 L MCV 54 L MCH 16 L MCHC RDW 19.9 H Seg Neuts % (Manual) 76.0 H Lymphocytes # (Manual) 1.0 L PT 12.1 L D-Dimer 284.01 H Sodium 136 L Creatinine Glucose 125 H POC Glucose Alkaline Phosphatase Lactate Dehydrogenase C-Reactive Protein Albumin Coronavirus (PCR) 08/18/20 08/19/20 08/19/20 21:53 05:00 05:00 RBC Hgb 8.0 L Hct 27.4 L MCV 55 L MCH 16 L MCHC 29 L RDW 19.5 H Seg Neuts % (Manual) 78.0 H Lymphocytes # (Manual) 0.8 L PT D-Dimer Sodium Creatinine 0.5 L Glucose 126 H 176 H POC Glucose Alkaline Phosphatase 138 H Lactate Dehydrogenase 534 H C-Reactive Protein 7.60 H Albumin 3.8 L Coronavirus (PCR) 08/19/20 08/19/20 11:50 Unknown RBC Hgb Hct MCV MCH MCHC RDW Seg Neuts % (Manual) Lymphocytes # (Manual) PT D-Dimer Sodium Creatinine Glucose POC Glucose 161 H Alkaline Phosphatase Lactate Dehydrogenase C-Reactive Protein Albumin Coronavirus (PCR) Positive A - Diagnostic Findings Chest x-ray: report reviewed, image reviewed (bilateral infiltrates) Assessment and Plan Imp: 1. Covid-19 2. Viral pneumonia 3. Acute respiratory failure, hypoxia 4. ARDS 5. Obesity Rec; 1. Cont. Decadron, Remdesivir, DVT PPx, ABX pending procal level 2. Wean HFNC to keep sats 88% or > 3. Proning as able 4. Monitor inflammatory markers, clinical symptoms, etc. 5. Complex decision-making Plan of care reviewed w/ patient, she understands/agrees Thanks kindly for the consult. Will follow with you.
[2020-08-19] MEDS: ASCORBIC ACID 500 MG TAB PO SCH (23:28)
[2020-08-19] MEDS: ENOXAPARIN 40 MG/0.4 ML INJ SUB-Q SCH (23:28)
[2020-08-20 05:58] LABS: Mean Corpuscular HGB Conc 29 % (30-34); Platelet Count 460 K/mm3 (140-440); Red Blood Count 4.66 M/mm3 (3.65-5.03); Red Cell Distribution Width 19.6 % (13.2-15.2)
[2020-08-20 06:13] LABS: Alanine Aminotransferase 41 units/L (7-56); Albumin 3.3 g/dL (3.9-5); Blood Urea Nitrogen 12 mg/dL (7-17); Calcium 8.7 mg/dL (8.4-10.2); Hemolysis Index 6
[2020-08-20 06:23] LABS: BUN/Creatinine Ratio 24
[2020-08-20 06:29] LABS: Hematocrit 25.9 % (30.3-42.9); Hemoglobin 7.5 gm/dl (10.1-14.3); Mean Corpuscular Volume 56 fl (79-97)
--- NOTE | 2020-08-20 07:57 | Progress Note ---
Assessment and Plan Cultures: Blood culture pending COVID-19 positive as an outpatient A/P: 34-year-old female past medical history obesity, asthma, hypertension admitted with bilateral pneumonia #Acute hypoxemic respiratory failure: Likely secondary to COVID-19 infection. Hypoxic on admission to 88%. Patient now on high flow nasal cannula at 30 L, 55% #Acute sepsis: Present with fevers, tachycardia, tachypnea. Secondary to COVID- 19 #COVID-19 pneumonia: Patient presented with a week of symptoms, chest x-ray with bilateral infiltrates. Inflammatory markers elevated. #Obesity Recs: -Obtain procalcitonin -Continue dexamethasone 6 mg IV/PO daily for 10 days -Continue remdesivir D2 of 5 -Obtain q48-72h inflammatory markers - ferritin, Ddimer, CRP, LDH -Continue ceftriaxone 2 gm IV qday and azithromycin 500 mg PO qday, if procalcitonin <0.25 ng/mL stop antibiotics -Anticoagulation per hospital protocol -Proning as able Radha Phillip MD [facility] ([facility]) Office [phone] Subjective Date of service: 08/20/20 Principal diagnosis: COVID-19 hypoxia Interval history: Patient remains on high flow nasal cannula 30 L, 55%, no desaturation overnight. No acute events overnight, no fever. Objective - Exam Narrative Exam: physical exam deferred to minimize COVID-19 transmission during pandemic. Internal medicine physical examination notes reviewed. - Constitutional Vitals: Vital Signs Temp Pulse Resp BP Pulse Ox 98.1 F 77 24 86/43 95 08/20/20 04:26 08/20/20 04:26 08/20/20 04:26 08/20/20 04:26 08/20/20 04:26 Temperature -Last 24 Hours Temperature 98.1 F Temperature 98.9 F Temperature 98.4 F Temperature 99.3 F - Labs CBC & Chem 7: 08/20/20 04:02 08/20/20 04:02 Labs: Abnormal lab results 08/19/20 08/19/20 08/20/20 Range/Units 11:50 Unknown 04:02 Hgb (10.1-14.3) gm/dl Hct (30.3-42.9) % MCV (79-97) fl MCH (28-32) pg MCHC (30-34) % RDW (13.2-15.2) % Plt Count (140-440) K/mm3 Creatinine 0.5 L (0.6-1.2) mg/dL Glucose 150 H (65-100) mg/dL POC Glucose 161 H (70-105) mg/dL AST 49 H (5-40) units/L Albumin 3.3 L (3.9-5) g/dL Coronavirus (PCR) Positive A (Negative) 08/20/20 Range/Units 04:02 Hgb 7.5 L (10.1-14.3) gm/dl Hct 25.9 L (30.3-42.9) % MCV 56 L (79-97) fl MCH 16 L (28-32) pg MCHC 29 L (30-34) % RDW 19.6 H (13.2-15.2) % Plt Count 460 H (140-440) K/mm3 Creatinine (0.6-1.2) mg/dL Glucose (65-100) mg/dL POC Glucose (70-105) mg/dL AST (5-40) units/L Albumin (3.9-5) g/dL Coronavirus (PCR) (Negative)
[2020-08-20] MEDS: guaiFENesin DM 200/20 MG ORAL LIQD 10 ML PO PRN ×2 (08:05→22:47)
[2020-08-20] MEDS ORDERED: ALBUTEROL 8.5 GM MDI INHALATION IH PRN (09:11)
--- NOTE | 2020-08-20 09:14 | Progress Note ---
Assessment and Plan 34 y/o obese female with known asthma, admitted with acute respiratory failure secondary COVID 19 1. Given her prior history of asthma, will change dex to solumedrol 60q6 2. Added PRN albuterol Puffers, [id number] for shortness of breath 3. Continue Remdesivir 4. Follow up Procal to determine abx need 5. No additional fluids unless absolutely necessary 6. Proning as tolerated during the day and sleep prone at night. Subjective Date of service: 08/20/20 Principal diagnosis: COVID-19 hypoxia Interval history: Remains on HFNC at 30 and 55%. Sats in the low to mid 90's. BP is marginal. I/O not accurate. Objective Vital Signs - 12hr 08/19/20 08/20/20 08/20/20 22:07 02:00 04:26 Temperature 98.9 F 98.1 F Pulse Rate 92 H 77 Respiratory 24 24 Rate Blood Pressure 102/62 86/43 O2 Sat by Pulse 90 98 95 Oximetry 08/20/20 08:09 Temperature Pulse Rate Respiratory Rate Blood Pressure O2 Sat by Pulse 93 Oximetry Constitutional: no acute distress, alert Eyes: non-icteric Neck: supple Effort: normal Ascultation: Bilateral: rales Cardiovascular: regular rate and rhythm (no mrg) Gastrointestinal: normoactive bowel sounds, soft, non-tender Integumentary: normal Extremities: no cyanosis, no edema, pink and warm Neurologic: normal mental status, non-focal exam, pupils equal and round, CN II-XII normal Psychiatric: mood appropriate, affect normal CBC and BMP: 08/20/20 04:02 08/20/20 04:02 ABG, PT/INR, D-dimer: PT/INR, D-dimer PT 12.9 Sec. (12.2-14.9) 08/19/20 05:00 INR 0.98 (0.87-1.13) 08/19/20 05:00 D-Dimer 284.01 ng/mlDDU (0-234) H 08/18/20 21:53 Abnormal lab findings: Abnormal Labs 08/18/20 08/18/20 08/18/20 20:45 20:45 21:53 RBC 5.19 H Hgb 8.5 L Hct 28.1 L MCV 54 L MCH 16 L MCHC RDW 19.9 H Plt Count Seg Neuts % (Manual) 76.0 H Lymphocytes # (Manual) 1.0 L PT 12.1 L D-Dimer 284.01 H Sodium 136 L Creatinine Glucose 125 H POC Glucose AST Alkaline Phosphatase Lactate Dehydrogenase C-Reactive Protein Albumin Coronavirus (PCR) 08/18/20 08/19/20 08/19/20 21:53 05:00 05:00 RBC Hgb 8.0 L Hct 27.4 L MCV 55 L MCH 16 L MCHC 29 L RDW 19.5 H Plt Count Seg Neuts % (Manual) 78.0 H Lymphocytes # (Manual) 0.8 L PT D-Dimer Sodium Creatinine 0.5 L Glucose 126 H 176 H POC Glucose AST Alkaline Phosphatase 138 H Lactate Dehydrogenase 534 H C-Reactive Protein 7.60 H Albumin 3.8 L Coronavirus (PCR) 08/19/20 08/19/20 08/20/20 11:50 Unknown 04:02 RBC Hgb Hct MCV MCH MCHC RDW Plt Count Seg Neuts % (Manual) Lymphocytes # (Manual) PT D-Dimer Sodium Creatinine 0.5 L Glucose 150 H POC Glucose 161 H AST 49 H Alkaline Phosphatase Lactate Dehydrogenase C-Reactive Protein Albumin 3.3 L Coronavirus (PCR) Positive A 08/20/20 04:02 RBC Hgb 7.5 L Hct 25.9 L MCV 56 L MCH 16 L MCHC 29 L RDW 19.6 H Plt Count 460 H Seg Neuts % (Manual) Lymphocytes # (Manual) PT D-Dimer Sodium Creatinine Glucose POC Glucose AST Alkaline Phosphatase Lactate Dehydrogenase C-Reactive Protein Albumin Coronavirus (PCR)
--- NOTE | 2020-08-20 09:16 | Progress Note ---
Assessment and Plan Assessment and plan: 34-year-old female with known history of asthma, hypertension presenting to the emergency room today complaining of difficulty breathing for about 1 week. She was diagnosed with COVID-19 at an outside facility sometime last week. She has had some fever, cough, generalized body aches and pain, loss of taste and smell. Patient denies any nausea vomiting, no abdominal pain, no hematuria or dysuria, no headache or dizziness. Patient has used her nebulizing treatment at home without any significant im provement. Patient indicates that mother whom she lives with at home is also Covid positive. Patient admitted with pneumonia secondary to COVID-19. Chest x-ray shows bilateral pulmonary Acute hypoxemic respiratory failure Sepsis secondary to Covid pneumonia Covid pneumonia Obesity Plan Continue dexamethasone and remdesivir as prescribed by infectious disease physician Inflammatory markers every 48-72 hours Antibiotics. While awaiting procalcitonin Patient was saturating 88% while on room air on admission if no improvement in respiratory status in a.m. we will obtain pulmonary consult We will start patient on vitamins in addition to incentive spirometer. Encourage patient to prone DVT and GI prophylaxis Weight loss management discussed in detail 08/20: Continue supportive care, patient was placed on high flow oxygen yesterday, also noted some anxiety. Will give a dose of lasix today and continue to monitor. Encourage Prone as tolerated. Wean oxygen as tolerating, follow inflammatory markers and continue abx while awaiting Procal level. Discussed with Nursing Staff about Incentive spirometer. History Interval history: Patient seen and examined reports some cough and shortness of breath still, now on High flow, reports exertional dyspnea Hospitalist Physical - Physical exam Narrative exam: VITAL SIGNS: Reviewed. GENERAL: The patient appears normally developed, on High flow Vital signs as documented. HEAD: No signs of head trauma. EYES: Pupils are equal. Extraocular motions intact. EARS: Hearing grossly intact. MOUTH: Oropharynx is normal. NECK: No adenopathy, no JVD. CHEST: Chest with diminished breath sounds bilaterally. No wheezes, rales, or rhonchi. CARDIAC: Regular rate and rhythm. S1 and S2, without murmurs, gallops, or rubs. VASCULAR: No Edema. Peripheral pulses normal and equal in all extremities. ABDOMEN: Soft, non tender and non distended. No rebound or guarding, and no masses palpated. Bowel Sounds normal. MUSCULOSKELETAL: Good range of motion of all major joints. Extremities without clubbing, cyanosis or edema. NEUROLOGIC EXAM: Alert and oriented x 3 No focal sensory or strength deficits. Speech normal. Follows commands. PSYCHIATRIC: Mood normal. SKIN: detail exam as documented in skin assessment - Constitutional Vitals: Temp Pulse Resp BP Pulse Ox 98.1 F 77 24 86/43 93 08/20/20 04:26 08/20/20 04:26 08/20/20 04:26 08/20/20 04:26 08/20/20 08:09 General appearance: Present: no acute distress, well-nourished Results - Labs CBC & Chem 7: 08/20/20 04:02 08/20/20 04:02 Labs: Laboratory Last Values WBC 7.5 K/mm3 (4.5-11.0) 08/20/20 04:02 RBC 4.66 M/mm3 (3.65-5.03) 08/20/20 04:02 Hgb 7.5 gm/dl (10.1-14.3) L 08/20/20 04:02 Hct 25.9 % (30.3-42.9) L 08/20/20 04:02 MCV 56 fl (79-97) L 08/20/20 04:02 MCH 16 pg (28-32) L 08/20/20 04:02 MCHC 29 % (30-34) L 08/20/20 04:02 RDW 19.6 % (13.2-15.2) H 08/20/20 04:02 Plt Count 460 K/mm3 (140-440) H 08/20/20 04:02 Add Manual Diff Complete 08/19/20 05:00 Total Counted 100 08/19/20 05:00 Seg Neuts % (Manual) 78.0 % (40.0-70.0) H 08/19/20 05:00 Band Neutrophils % 1.0 % 08/19/20 05:00 Lymphocytes % (Manual) 17.0 % (13.4-35.0) 08/19/20 05:00 Reactive Lymphs % (Man) 1.0 % 08/19/20 05:00 Monocytes % (Manual) 3.0 % (0.0-7.3) 08/19/20 05:00 Nucleated RBC % Not Reportable 08/19/20 05:00 Seg Neutrophils # Man 3.7 K/mm3 (1.8-7.7) 08/19/20 05:00 Band Neutrophils # 0.0 K/mm3 08/19/20 05:00 Lymphocytes # (Manual) 0.8 K/mm3 (1.2-5.4) L 08/19/20 05:00 Abs React Lymphs (Man) 0.0 K/mm3 08/19/20 05:00 Monocytes # (Manual) 0.1 K/mm3 (0.0-0.8) 08/19/20 05:00 Eosinophils # (Manual) 0.0 K/mm3 (0.0-0.4) 08/19/20 05:00 Basophils # (Manual) 0.0 K/mm3 (0.0-0.1) 08/19/20 05:00 Metamyelocytes # 0.0 K/mm3 08/19/20 05:00 Myelocytes # 0.0 K/mm3 08/19/20 05:00 Promyelocytes # 0.0 K/mm3 08/19/20 05:00 Blast Cells # 0.0 K/mm3 08/19/20 05:00 WBC Morphology Not Reportable 08/19/20 05:00 Hypersegmented Neuts Not Reportable 08/19/20 05:00 Hyposegmented Neuts Not Reportable 08/19/20 05:00 Hypogranular Neuts Not Reportable 08/19/20 05:00 Smudge Cells Not Reportable 08/19/20 05:00 Toxic Granulation Not Reportable 08/19/20 05:00 Toxic Vacuolation Not Reportable 08/19/20 05:00 Dohle Bodies Not Reportable 08/19/20 05:00 Pelger-Huet Anomaly Not Reportable 08/19/20 05:00 Meka Rods Not Reportable 08/19/20 05:00 Platelet Estimate Consistent w auto 08/19/20 05:00 Clumped Platelets Not Reportable 08/19/20 05:00 Plt Clumps, EDTA Not Reportable 08/19/20 05:00 Large Platelets Not Reportable 08/19/20 05:00 Giant Platelets Not Reportable 08/19/20 05:00 Platelet Satelliting Not Reportable 08/19/20 05:00 Plt Morphology Comment Not Reportable 08/19/20 05:00 RBC Morphology Not Reportable 08/19/20 05:00 Dimorphic RBCs Not Reportable 08/19/20 05:00 Polychromasia Not Reportable 08/19/20 05:00 Hypochromasia 1+ 08/19/20 05:00 Poikilocytosis Not Reportable 08/19/20 05:00 Anisocytosis 1+ 08/19/20 05:00 Microcytosis 1+ 08/19/20 05:00 Macrocytosis Not Reportable 08/19/20 05:00 Spherocytes Not Reportable 08/19/20 05:00 Pappenheimer Bodies Not Reportable 08/19/20 05:00 Sickle Cells Not Reportable 08/19/20 05:00 Target Cells Not Reportable 08/19/20 05:00 Tear Drop Cells Not Reportable 08/19/20 05:00 Ovalocytes Not Reportable 08/19/20 05:00 Helmet Cells Not Reportable 08/19/20 05:00 Gaytan-[place] Bodies Not Reportable 08/19/20 05:00 [place] Rings Not Reportable 08/19/20 05:00 [place] Cells Not Reportable 08/19/20 05:00 Bite Cells Not Reportable 08/19/20 05:00 Crenated Cell Not Reportable 08/19/20 05:00 Elliptocytes Not Reportable 08/19/20 05:00 Acanthocytes (Spur) Not Reportable 08/19/20 05:00 Rouleaux Not Reportable 08/19/20 05:00 Hemoglobin C Crystals Not Reportable 08/19/20 05:00 Schistocytes Not Reportable 08/19/20 05:00 Malaria parasites Not Reportable 08/19/20 05:00 David Bodies Not Reportable 08/19/20 05:00 Hem Pathologist Commnt No 08/19/20 05:00 PT 12.9 Sec. (12.2-14.9) 08/19/20 05:00 INR 0.98 (0.87-1.13) 08/19/20 05:00 APTT 35.8 Sec. (24.2-36.6) 08/18/20 21:53 D-Dimer 284.01 ng/mlDDU (0-234) H 08/18/20 21:53 Sodium 138 mmol/L (137-145) 08/20/20 04:02 Potassium 3.9 mmol/L (3.6-5.0) 08/20/20 04:02 Chloride 103.3 mmol/L (98-107) 08/20/20 04:02 Carbon Dioxide 26 mmol/L (22-30) 08/20/20 04:02 Anion Gap 13 mmol/L 08/20/20 04:02 BUN 12 mg/dL (7-17) 08/20/20 04:02 Creatinine 0.5 mg/dL (0.6-1.2) L 08/20/20 04:02 Estimated GFR > 60 ml/min 08/20/20 04:02 BUN/Creatinine Ratio 24 % 08/20/20 04:02 Glucose 150 mg/dL (65-100) H 08/20/20 04:02 POC Glucose 161 mg/dL (70-105) H 08/19/20 11:50 Calcium 8.7 mg/dL (8.4-10.2) 08/20/20 04:02 Ferritin 84.2 ng/mL (10.0-200.0) 08/18/20 21:53 Total Bilirubin 0.20 mg/dL (0.1-1.2) 08/20/20 04:02 Direct Bilirubin < 0.2 mg/dL (0-0.2) 08/18/20 21:53 Indirect Bilirubin 0.1 mg/dL 08/18/20 21:53 AST 49 units/L (5-40) H 08/20/20 04:02 ALT 41 units/L (7-56) 08/20/20 04:02 Alkaline Phosphatase 127 units/L (35-129) 08/20/20 04:02 Lactate Dehydrogenase 534 units/L (91-180) H 08/18/20 21:53 C-Reactive Protein 7.60 mg/dL (0.00-1.30) H 08/18/20 21:53 Total Protein 6.6 g/dL (6.3-8.2) 08/20/20 04:02 Albumin 3.3 g/dL (3.9-5) L 08/20/20 04:02 Albumin/Globulin Ratio 1.0 % 08/20/20 04:02 Coronavirus (PCR) Positive (Negative) A 08/19/20 Unknown Microbiology: Microbiology 08/18/20 21:53 Peripheral/Venous Blood Culture - Preliminary NO GROWTH AFTER 24 HOURS 08/18/20 22:09 Peripheral/Venous Blood Culture - Preliminary NO GROWTH AFTER 24 HOURS Silvestre/IV: Voiding Method Toilet IV Catheter Type [Left Hand] INT / Saline Lock IV Catheter Type [Right Peripheral IV Antecubital] Active Medications - Current Medications Current Medications: Generic Name Dose Route Start Last Admin Trade Name Freq PRN Reason Stop Dose Admin Acetaminophen 650 mg 08/18/20 23:26 Acetaminophen 325 Mg Tab PO Q4H PRN Pain MILD(1-3)/Fever >100.5/CARPENTER Albuterol 2 puff 08/20/20 09:11 Albuterol 8.5 Gm Mdi Inhalation IH Q4HRT PRN Shortness Of Breath Alprazolam 0.25 mg 08/19/20 17:21 08/19/20 18:17 Alprazolam 0.25 Mg Tab PO 0.25 mg Q8H PRN Administration Anxiety Ascorbic Acid 1,000 mg 08/19/20 22:00 08/19/20 23:28 Ascorbic Acid 500 Mg Tab PO 1,000 mg BID VANESA Administration Cholecalciferol 5,000 unit 08/20/20 10:00 Cholecalciferol (Vit D3) 5,000 Unit Tab PO DAILY [facility] Enoxaparin Sodium 40 mg 08/19/20 22:00 08/19/20 23:28 Enoxaparin 40 Mg/0.4 Ml Inj SUB-Q 40 mg QDAY@2200 VANESA Administration Protocol Furosemide 40 mg 08/20/20 09:13 Furosemide 40 Mg/4 Ml Inj IV 08/20/20 09:14 ONCE ONE Guaifenesin 10 ml 08/19/20 13:14 08/20/20 08:05 Guaifenesin Dm 200/20 Mg Oral Liqd 10 Ml PO 10 ml Q4H PRN Administration Cough Ceftriaxone Sodium 2 gm in 100 mls @ 200 mls/hr 08/19/20 10:00 08/19/20 09:01 Rocephin/Ns 2 Gm/100 Ml IV 200 mls/hr Q24HR [facility]ESA Administration Protocol Azithromycin 500 mg in 250 mls @ 250 mls/hr 08/19/20 10:00 08/19/20 11:28 Zithromax/Ns IV 08/22/20 10:59 250 mls/hr Q24HR [facility]ESA Administration Protocol REMDESIVIR 100 mg/ Sodium 250 mls @ 500 mls/hr 08/20/20 21:00 Chloride IV 08/23/20 21:29 Q24HR@2100 [facility] Magnesium Hydroxide 30 ml 08/18/20 23:26 Magnesium Hydroxide (Mom) Oral Liqd Udc PO Q4H PRN Constipation Methylprednisolone Sodium Succinate 60 mg 08/20/20 12:00 Methylprednisolone Sod Succinate 125 Mg/2 Ml Inj IV Q6HR [facility] Morphine Sulfate 2 mg 08/18/20 23:26 08/19/20 12:23 Morphine 2 Mg/1 Ml Inj IV 2 mg Q4H PRN Administration Pain, Moderate (4-6) Ondansetron HCl 4 mg 08/18/20 23:26 Ondansetron 4 Mg/2 Ml Inj IV Q8H PRN Nausea And Vomiting Sodium Chloride 10 ml 08/19/20 10:00 08/19/20 23:29 Sodium Chloride 0.9% 10 Ml Flush Syringe IV 10 ml BID VANESA Administration Sodium Chloride 10 ml 08/18/20 23:26 Sodium Chloride 0.9% 10 Ml Flush Syringe IV PRN PRN LINE FLUSH Sodium Chloride 50 ml 08/19/20 11:30 08/19/20 14:29 Sodium Chloride 0.9% 50 Ml Ivpb IV 08/23/20 21:01 50 ml Q24HR@2100 [facility] Administration Zinc Sulfate 220 mg 08/20/20 10:00 Zinc Sulfate 220 Mg Cap PO QDAY [facility]
[2020-08-20] MEDS ORDERED: FUROSEMIDE 40 MG/4 ML INJ IV NR (09:30)
[2020-08-20] MEDS: AZITHROMYCIN/NS 500 MG/250 ML 500 MG/250 ML BAG IV SCH (09:39)
[2020-08-20] MEDS: cefTRIAXone/NS 2 GM/100 ML 2 GM/100 ML BAG IV SCH (09:39)
[2020-08-20] MEDS: CHOLECALCIFEROL (VIT D3) 5,000 UNIT TAB PO SCH (09:40)
[2020-08-20] MEDS: ASCORBIC ACID 500 MG TAB PO SCH ×2 (09:40→22:45)
[2020-08-20] MEDS: ZINC SULFATE 220 MG CAP PO SCH (09:40)
[2020-08-20 11:32] LABS: C-Reactive Protein 1.6 mg/dL (0.00-1.30)
[2020-08-20] MEDS: MIDODRINE 2.5 MG TAB PO SCH ×2 (12:30→16:00)
[2020-08-20] MEDS: methylPREDNISolone Sod Succinate 125 MG/2 ML INJ IV SCH ×2 (12:35→17:47)
[2020-08-20] MEDS: SODIUM CHLORIDE 0.9% 50 ML IVPB IV SCH (22:43)
[2020-08-20] MEDS: REMDESIVIR 100 MG in SODIUM CHLORIDE 0.9% 250ML 250 ML IV SCH (22:43)
[2020-08-20] MEDS: ENOXAPARIN 40 MG/0.4 ML INJ SUB-Q SCH (22:44)
[2020-08-21] MEDS: methylPREDNISolone Sod Succinate 125 MG/2 ML INJ IV SCH ×4 (00:29→17:28)
[2020-08-21 05:46] LABS: Alanine Aminotransferase 54 units/L (7-56); Albumin 3.4 g/dL (3.9-5); Blood Urea Nitrogen 17 mg/dL (7-17); Calcium 8.5 mg/dL (8.4-10.2); Hemolysis Index 1
[2020-08-21 05:48] LABS: BUN/Creatinine Ratio 34; Bilirubin,Direct < 0.2 mg/dL (0-0.2)
--- NOTE | 2020-08-21 07:43 | Progress Note ---
Assessment and Plan Cultures: Blood culture pending COVID-19 positive as an outpatient A/P: 34-year-old female past medical history obesity, asthma, hypertension admitted with bilateral pneumonia #Acute hypoxemic respiratory failure: Likely secondary to COVID-19 infection. Hypoxic on admission to 88%. Remains on high flow nasal cannula at 30 L, 55%. Markers improving. D-dimer normal. #Acute sepsis: Resolved. Secondary to COVID-19. Procalcitonin is low. #COVID-19 pneumonia: Patient presented with a week of symptoms, chest x-ray with bilateral infiltrates. Inflammatory markers elevated. #Obesity Recs: -Continue dexamethasone 6 mg IV/PO daily for 10 days -Continue remdesivir D3 of 5 -Obtain q48-72h inflammatory markers - ferritin, Ddimer, CRP, LDH -Stop ceftriaxone and azithromycin, procalcitonin <0.25 ng/mL -Anticoagulation per hospital protocol -Proning as able Radha Phillip MD [facility] ([facility]) Office [phone] Subjective Date of service: 08/21/20 Principal diagnosis: COVID-19 hypoxia Interval history: Patient remains on high flow nasal cannula 30 L, 55%, no desaturation overnight, noted mild hypotension. No acute events overnight, no fever. Objective - Exam Narrative Exam: physical exam deferred to minimize COVID-19 transmission during pandemic. Internal medicine physical examination notes reviewed. - Constitutional Vitals: Vital Signs Temp Pulse Resp BP Pulse Ox 98.1 F 69 24 99/47 98 08/21/20 05:17 08/21/20 05:17 08/21/20 05:17 08/21/20 05:17 08/21/20 05:17 Temperature -Last 24 Hours Temperature 98.1 F Temperature 98.6 F Temperature 98.1 F Temperature 98.0 F - Labs CBC & Chem 7: 08/20/20 04:02 08/21/20 04:40 Labs: Abnormal lab results 08/20/20 08/21/20 Range/Units 10:41 04:40 Creatinine 0.5 L (0.6-1.2) mg/dL Glucose 177 H (65-100) mg/dL Lactate Dehydrogenase 358 H (91-180) units/L C-Reactive Protein 1.60 H (0.00-1.30) mg/dL Total Protein 6.2 L (6.3-8.2) g/dL Albumin 3.4 L (3.9-5) g/dL
[2020-08-21] MEDS: MIDODRINE 2.5 MG TAB PO SCH ×3 (08:00→16:00)
--- NOTE | 2020-08-21 08:33 | Progress Note ---
Assessment and Plan Assessment and plan: 34-year-old female with known history of asthma, hypertension presenting to the emergency room today complaining of difficulty breathing for about 1 week. She was diagnosed with COVID-19 at an outside facility sometime last week. She has had some fever, cough, generalized body aches and pain, loss of taste and smell. Patient denies any nausea vomiting, no abdominal pain, no hematuria or dysuria, no headache or dizziness. Patient has used her nebulizing treatment at home without any significant im provement. Patient indicates that mother whom she lives with at home is also Covid positive. Patient admitted with pneumonia secondary to COVID-19. Chest x-ray shows bilateral pulmonary Acute hypoxemic respiratory failure Sepsis secondary to Covid pneumonia Covid pneumonia Obesity Plan Continue dexamethasone and remdesivir as prescribed by infectious disease physician Inflammatory markers every 48-72 hours Antibiotics. While awaiting procalcitonin Patient was saturating 88% while on room air on admission if no improvement in respiratory status in a.m. we will obtain pulmonary consult We will start patient on vitamins in addition to incentive spirometer. Encourage patient to prone DVT and GI prophylaxis Weight loss management discussed in detail 08/20: Continue supportive care, patient was placed on high flow oxygen yesterday, also noted some anxiety. Will give a dose of lasix today and continue to monitor. Encourage Prone as tolerated. Wean oxygen as tolerating, follow inflammatory markers and continue abx while awaiting Procal level. Discussed with Nursing Staff about Incentive spirometer. 08/21: Continue supportive care remains on high flow oxygen. Continue steroids at this time. Antibiotics has been discontinued as patient procalcitonin is normal prognosis remains guarded. Encourage continued use of incentive spirometer History Interval history: Patient seen and examined reports some cough and shortness of breath still, now on High flow, reports exertional dyspnea, she states that she has been sleeping on her side and encouraged her to prone herself as much as she can. Hospitalist Physical - Physical exam Narrative exam: VITAL SIGNS: Reviewed. GENERAL: The patient appears normally developed, on High flow Vital signs as documented. HEAD: No signs of head trauma. EYES: Pupils are equal. Extraocular motions intact. EARS: Hearing grossly intact. MOUTH: Oropharynx is normal. NECK: No adenopathy, no JVD. CHEST: Chest with diminished breath sounds bilaterally. No wheezes, rales, or rhonchi. CARDIAC: Regular rate and rhythm. S1 and S2, without murmurs, gallops, or rubs. VASCULAR: No Edema. Peripheral pulses normal and equal in all extremities. ABDOMEN: Soft, non tender and non distended. No rebound or guarding, and no masses palpated. Bowel Sounds normal. MUSCULOSKELETAL: Good range of motion of all major joints. Extremities without clubbing, cyanosis or edema. NEUROLOGIC EXAM: Alert and oriented x 3 No focal sensory or strength deficits. Speech normal. Follows commands. PSYCHIATRIC: Mood normal. SKIN: detail exam as documented in skin assessment - Constitutional Vitals: Temp Pulse Resp BP Pulse Ox 98.1 F 69 24 99/47 98 08/21/20 05:17 08/21/20 05:17 08/21/20 05:17 08/21/20 05:17 08/21/20 05:17 General appearance: Present: no acute distress, well-nourished Results - Labs CBC & Chem 7: 08/20/20 04:02 08/21/20 04:40 Labs: Laboratory Last Values WBC 7.5 K/mm3 (4.5-11.0) 08/20/20 04:02 RBC 4.66 M/mm3 (3.65-5.03) 08/20/20 04:02 Hgb 7.5 gm/dl (10.1-14.3) L 08/20/20 04:02 Hct 25.9 % (30.3-42.9) L 08/20/20 04:02 MCV 56 fl (79-97) L 08/20/20 04:02 MCH 16 pg (28-32) L 08/20/20 04:02 MCHC 29 % (30-34) L 08/20/20 04:02 RDW 19.6 % (13.2-15.2) H 08/20/20 04:02 Plt Count 460 K/mm3 (140-440) H 08/20/20 04:02 Add Manual Diff Complete 08/19/20 05:00 Total Counted 100 08/19/20 05:00 Seg Neuts % (Manual) 78.0 % (40.0-70.0) H 08/19/20 05:00 Band Neutrophils % 1.0 % 08/19/20 05:00 Lymphocytes % (Manual) 17.0 % (13.4-35.0) 08/19/20 05:00 Reactive Lymphs % (Man) 1.0 % 08/19/20 05:00 Monocytes % (Manual) 3.0 % (0.0-7.3) 08/19/20 05:00 Nucleated RBC % Not Reportable 08/19/20 05:00 Seg Neutrophils # Man 3.7 K/mm3 (1.8-7.7) 08/19/20 05:00 Band Neutrophils # 0.0 K/mm3 08/19/20 05:00 Lymphocytes # (Manual) 0.8 K/mm3 (1.2-5.4) L 08/19/20 05:00 Abs React Lymphs (Man) 0.0 K/mm3 08/19/20 05:00 Monocytes # (Manual) 0.1 K/mm3 (0.0-0.8) 08/19/20 05:00 Eosinophils # (Manual) 0.0 K/mm3 (0.0-0.4) 08/19/20 05:00 Basophils # (Manual) 0.0 K/mm3 (0.0-0.1) 08/19/20 05:00 Metamyelocytes # 0.0 K/mm3 08/19/20 05:00 Myelocytes # 0.0 K/mm3 08/19/20 05:00 Promyelocytes # 0.0 K/mm3 08/19/20 05:00 Blast Cells # 0.0 K/mm3 08/19/20 05:00 WBC Morphology Not Reportable 08/19/20 05:00 Hypersegmented Neuts Not Reportable 08/19/20 05:00 Hyposegmented Neuts Not Reportable 08/19/20 05:00 Hypogranular Neuts Not Reportable 08/19/20 05:00 Smudge Cells Not Reportable 08/19/20 05:00 Toxic Granulation Not Reportable 08/19/20 05:00 Toxic Vacuolation Not Reportable 08/19/20 05:00 Dohle Bodies Not Reportable 08/19/20 05:00 Pelger-Huet Anomaly Not Reportable 08/19/20 05:00 Meka Rods Not Reportable 08/19/20 05:00 Platelet Estimate Consistent w auto 08/19/20 05:00 Clumped Platelets Not Reportable 08/19/20 05:00 Plt Clumps, EDTA Not Reportable 08/19/20 05:00 Large Platelets Not Reportable 08/19/20 05:00 Giant Platelets Not Reportable 08/19/20 05:00 Platelet Satelliting Not Reportable 08/19/20 05:00 Plt Morphology Comment Not Reportable 08/19/20 05:00 RBC Morphology Not Reportable 08/19/20 05:00 Dimorphic RBCs Not Reportable 08/19/20 05:00 Polychromasia Not Reportable 08/19/20 05:00 Hypochromasia 1+ 08/19/20 05:00 Poikilocytosis Not Reportable 08/19/20 05:00 Anisocytosis 1+ 08/19/20 05:00 Microcytosis 1+ 08/19/20 05:00 Macrocytosis Not Reportable 08/19/20 05:00 Spherocytes Not Reportable 08/19/20 05:00 Pappenheimer Bodies Not Reportable 08/19/20 05:00 Sickle Cells Not Reportable 08/19/20 05:00 Target Cells Not Reportable 08/19/20 05:00 Tear Drop Cells Not Reportable 08/19/20 05:00 Ovalocytes Not Reportable 08/19/20 05:00 Helmet Cells Not Reportable 08/19/20 05:00 Gaytan-[place] Bodies Not Reportable 08/19/20 05:00 [place] Rings Not Reportable 08/19/20 05:00 [place] Cells Not Reportable 08/19/20 05:00 Bite Cells Not Reportable 08/19/20 05:00 Crenated Cell Not Reportable 08/19/20 05:00 Elliptocytes Not Reportable 08/19/20 05:00 Acanthocytes (Spur) Not Reportable 08/19/20 05:00 Rouleaux Not Reportable 08/19/20 05:00 Hemoglobin C Crystals Not Reportable 08/19/20 05:00 Schistocytes Not Reportable 08/19/20 05:00 Malaria parasites Not Reportable 08/19/20 05:00 David Bodies Not Reportable 08/19/20 05:00 Hem Pathologist Commnt No 08/19/20 05:00 PT 12.9 Sec. (12.2-14.9) 08/19/20 05:00 INR 0.98 (0.87-1.13) 08/19/20 05:00 APTT 35.8 Sec. (24.2-36.6) 08/18/20 21:53 D-Dimer 187.40 ng/mlDDU (0-234) 08/20/20 10:41 Sodium 138 mmol/L (137-145) 08/21/20 04:40 Potassium 4.9 mmol/L (3.6-5.0) D 08/21/20 04:40 Chloride 104.1 mmol/L (98-107) 08/21/20 04:40 Carbon Dioxide 22 mmol/L (22-30) 08/21/20 04:40 Anion Gap 17 mmol/L 08/21/20 04:40 BUN 17 mg/dL (7-17) 08/21/20 04:40 Creatinine 0.5 mg/dL (0.6-1.2) L 08/21/20 04:40 Estimated GFR > 60 ml/min 08/21/20 04:40 BUN/Creatinine Ratio 34 % 08/21/20 04:40 Glucose 177 mg/dL (65-100) H 08/21/20 04:40 POC Glucose 161 mg/dL (70-105) H 08/19/20 11:50 Calcium 8.5 mg/dL (8.4-10.2) 08/21/20 04:40 Ferritin 83.7 ng/mL (10.0-200.0) 08/20/20 10:41 Total Bilirubin 0.20 mg/dL (0.1-1.2) 08/21/20 04:40 Direct Bilirubin < 0.2 mg/dL (0-0.2) 08/21/20 04:40 Indirect Bilirubin 0.0 mg/dL 08/21/20 04:40 AST 33 units/L (5-40) 08/21/20 04:40 ALT 54 units/L (7-56) 08/21/20 04:40 Alkaline Phosphatase 126 units/L (35-129) 08/21/20 04:40 Lactate Dehydrogenase 358 units/L (91-180) H 08/20/20 10:41 C-Reactive Protein 1.60 mg/dL (0.00-1.30) H 08/20/20 10:41 Total Protein 6.2 g/dL (6.3-8.2) L 08/21/20 04:40 Albumin 3.4 g/dL (3.9-5) L 08/21/20 04:40 Albumin/Globulin Ratio 1.2 % 08/21/20 04:40 Procalcitonin 0.16 ng/mL (<0.15) 08/20/20 10:41 Coronavirus (PCR) Positive (Negative) A 08/19/20 Unknown Microbiology: Microbiology 08/18/20 21:53 Peripheral/Venous Blood Culture - Preliminary NO GROWTH AFTER 48 HOURS 08/18/20 22:09 Peripheral/Venous Blood Culture - Preliminary NO GROWTH AFTER 48 HOURS Silvestre/IV: Voiding Method Toilet IV Catheter Type [Left Hand] INT / Saline Lock IV Catheter Type [Right Peripheral IV Antecubital] Active Medications - Current Medications Current Medications: Generic Name Dose Route Start Last Admin Trade Name Freq PRN Reason Stop Dose Admin Acetaminophen 650 mg 08/18/20 23:26 Acetaminophen 325 Mg Tab PO Q4H PRN Pain MILD(1-3)/Fever >100.5/[place] Albuterol 2 puff 08/20/20 09:11 Albuterol 8.5 Gm Mdi Inhalation IH Q4HRT PRN Shortness Of Breath Alprazolam 0.25 mg 08/19/20 17:21 08/19/20 18:17 Alprazolam 0.25 Mg Tab PO 0.25 mg Q8H PRN Administration Anxiety Ascorbic Acid 1,000 mg 08/19/20 22:00 08/20/20 22:45 Ascorbic Acid 500 Mg Tab PO 1,000 mg BID VANESA Administration Cholecalciferol 5,000 unit 08/20/20 10:00 08/20/20 09:40 Cholecalciferol (Vit D3) 5,000 Unit Tab PO 5,000 unit DAILY [facility] Administration Enoxaparin Sodium 40 mg 08/19/20 22:00 08/20/20 22:44 Enoxaparin 40 Mg/0.4 Ml Inj SUB-Q 40 mg QDAY@2200 [facility] Administration Protocol Guaifenesin 10 ml 08/19/20 13:14 08/20/20 22:47 Guaifenesin Dm 200/20 Mg Oral Liqd 10 Ml PO 10 ml Q4H PRN Administration Cough REMDESIVIR 100 mg/ Sodium 250 mls @ 500 mls/hr 08/20/20 21:00 08/21/20 00:29 Chloride IV 08/23/20 21:29 Infused Q24HR@2100 [facility] Infusion Magnesium Hydroxide 30 ml 08/18/20 23:26 Magnesium Hydroxide (Mom) Oral Liqd Udc PO Q4H PRN Constipation Methylprednisolone Sodium Succinate 60 mg 08/20/20 12:00 08/21/20 06:09 Methylprednisolone Sod Succinate 125 Mg/2 Ml Inj IV 60 mg Q6HR [facility] Administration Midodrine 2.5 mg 08/20/20 12:33 08/20/20 16:00 Midodrine 2.5 Mg Tab PO 2.5 mg TID@0800,1200,1600 [facility] Administration Morphine Sulfate 2 mg 08/18/20 23:26 08/19/20 12:23 Morphine 2 Mg/1 Ml Inj IV 2 mg Q4H PRN Administration Pain, Moderate (4-6) Ondansetron HCl 4 mg 08/18/20 23:26 Ondansetron 4 Mg/2 Ml Inj IV Q8H PRN Nausea And Vomiting Sodium Chloride 10 ml 08/19/20 10:00 08/20/20 22:44 Sodium Chloride 0.9% 10 Ml Flush Syringe IV 10 ml BID VANESA Administration Sodium Chloride 10 ml 08/18/20 23:26 Sodium Chloride 0.9% 10 Ml Flush Syringe IV PRN PRN LINE FLUSH Sodium Chloride 50 ml 08/19/20 11:30 08/20/20 22:43 Sodium Chloride 0.9% 50 Ml Ivpb IV 08/23/20 21:01 50 ml Q24HR@2100 [facility] Administration Zinc Sulfate 220 mg 08/20/20 10:00 08/20/20 09:40 Zinc Sulfate 220 Mg Cap PO 220 mg QDAY [facility] Administration
--- NOTE | 2020-08-21 08:42 | Progress Note ---
Assessment and Plan 34 y/o obese female with known asthma, admitted with acute respiratory failure secondary COVID 19 08/21/20: Continue High Dose steroids. PRN albuterol puffers, no nebulizers. Remdesivir. Prone as tolerated if possible. please document if done, incapable or refusal. Guarded prognosis. 1. Given her prior history of asthma, will change dex to solumedrol 60q6 2. Added PRN albuterol Puffers, [id number] for shortness of breath 3. Continue Remdesivir 4. Follow up Procal to determine abx need 5. No additional fluids unless absolutely necessary 6. Proning as tolerated during the day and sleep prone at night. Subjective Date of service: 08/21/20 Principal diagnosis: COVID-19 hypoxia Interval history: No acute events. Tolerated increase in steroids. Sats are better. Still on HFNC 30 and 55 Objective Vital Signs - 12hr 08/20/20 08/21/20 08/21/20 22:34 02:59 05:17 Temperature 98.6 F 98.1 F Pulse Rate 81 69 Respiratory 24 24 Rate Blood Pressure 110/57 99/47 O2 Sat by Pulse 97 95 98 Oximetry Constitutional: no acute distress, alert Eyes: non-icteric Neck: supple Effort: normal Ascultation: Bilateral: rales Cardiovascular: regular rate and rhythm (no mrg) Gastrointestinal: normoactive bowel sounds, soft, non-tender Integumentary: normal Extremities: no cyanosis, no edema, pink and warm Neurologic: normal mental status, non-focal exam, pupils equal and round, CN II- XII normal Psychiatric: mood appropriate, affect normal CBC and BMP: 08/20/20 04:02 08/21/20 04:40 ABG, PT/INR, D-dimer: PT/INR, D-dimer PT 12.9 Sec. (12.2-14.9) 08/19/20 05:00 INR 0.98 (0.87-1.13) 08/19/20 05:00 D-Dimer 187.40 ng/mlDDU (0-234) 08/20/20 10:41 Abnormal lab findings: Abnormal Labs 08/18/20 08/18/20 08/18/20 20:45 20:45 21:53 RBC 5.19 H Hgb 8.5 L Hct 28.1 L MCV 54 L MCH 16 L MCHC RDW 19.9 H Plt Count Seg Neuts % (Manual) 76.0 H Lymphocytes # (Manual) 1.0 L PT 12.1 L D-Dimer 284.01 H Sodium 136 L Creatinine Glucose 125 H POC Glucose AST Alkaline Phosphatase Lactate Dehydrogenase C-Reactive Protein Total Protein Albumin Coronavirus (PCR) 08/18/20 08/19/20 08/19/20 21:53 05:00 05:00 RBC Hgb 8.0 L Hct 27.4 L MCV 55 L MCH 16 L MCHC 29 L RDW 19.5 H Plt Count Seg Neuts % (Manual) 78.0 H Lymphocytes # (Manual) 0.8 L PT D-Dimer Sodium Creatinine 0.5 L Glucose 126 H 176 H POC Glucose AST Alkaline Phosphatase 138 H Lactate Dehydrogenase 534 H C-Reactive Protein 7.60 H Total Protein Albumin 3.8 L Coronavirus (PCR) 08/19/20 08/19/20 08/20/20 11:50 Unknown 04:02 RBC Hgb Hct MCV MCH MCHC RDW Plt Count Seg Neuts % (Manual) Lymphocytes # (Manual) PT D-Dimer Sodium Creatinine 0.5 L Glucose 150 H POC Glucose 161 H AST 49 H Alkaline Phosphatase Lactate Dehydrogenase C-Reactive Protein Total Protein Albumin 3.3 L Coronavirus (PCR) Positive A 08/20/20 08/20/20 08/21/20 04:02 10:41 04:40 RBC Hgb 7.5 L Hct 25.9 L MCV 56 L MCH 16 L MCHC 29 L RDW 19.6 H Plt Count 460 H Seg Neuts % (Manual) Lymphocytes # (Manual) PT D-Dimer Sodium Creatinine 0.5 L Glucose 177 H POC Glucose AST Alkaline Phosphatase Lactate Dehydrogenase 358 H C-Reactive Protein 1.60 H Total Protein 6.2 L Albumin 3.4 L Coronavirus (PCR)
[2020-08-21] MEDS: CHOLECALCIFEROL (VIT D3) 5,000 UNIT TAB PO SCH (09:26)
[2020-08-21] MEDS: ZINC SULFATE 220 MG CAP PO SCH (09:26)
[2020-08-21] MEDS: ASCORBIC ACID 500 MG TAB PO SCH ×2 (09:27→21:39)
[2020-08-21] MEDS: REMDESIVIR 100 MG in SODIUM CHLORIDE 0.9% 250ML 250 ML IV SCH (21:39)
[2020-08-21] MEDS: SODIUM CHLORIDE 0.9% 50 ML IVPB IV SCH (21:39)
[2020-08-21] MEDS: ENOXAPARIN 40 MG/0.4 ML INJ SUB-Q SCH (21:39)
[2020-08-21] MEDS: MONTELUKAST 10 MG TAB PO SCH (21:40)
[2020-08-21] MEDS ORDERED: NON-FORMULARY EACH (Montelukast 10 MG) PO SCH (22:00)
[2020-08-22] MEDS: methylPREDNISolone Sod Succinate 125 MG/2 ML INJ IV SCH ×4 (05:12→17:12)
[2020-08-22 06:28] LABS: Mean Corpuscular HGB Conc 29 % (30-34); Platelet Count 567 K/mm3 (140-440); Red Blood Count 4.72 M/mm3 (3.65-5.03)
[2020-08-22 06:29] LABS: Hematocrit 26.7 % (30.3-42.9); Hemoglobin 7.7 gm/dl (10.1-14.3)
[2020-08-22 06:30] LABS: Mean Corpuscular Volume 57 fl (79-97); Red Cell Distribution Width 20.2 % (13.2-15.2)
[2020-08-22 06:47] LABS: Blood Urea Nitrogen 18 mg/dL (7-17); Calcium 8.6 mg/dL (8.4-10.2); Hemolysis Index 0
[2020-08-22 07:08] LABS: BUN/Creatinine Ratio 36
[2020-08-22] MEDS: MIDODRINE 2.5 MG TAB PO SCH ×3 (08:00→19:07)
--- NOTE | 2020-08-22 08:41 | Progress Note ---
Assessment and Plan Cultures: Blood culture no growth today COVID-19 positive as an outpatient A/P: 34-year-old female past medical history obesity, asthma, hypertension admitted with bilateral pneumonia #Acute hypoxemic respiratory failure: Likely secondary to COVID-19 infection. Hypoxic on admission to 88%. Remains on high flow nasal cannula at 25 L, 55%. #Acute sepsis: Resolved. Secondary to COVID-19. Procalcitonin is low. #COVID-19 pneumonia: Patient presented with a week of symptoms, chest x-ray with bilateral infiltrates. Inflammatory markers elevated. Markers improving. D- dimer normal. #Morbid Obesity Recs: -Continue steroids for 10 days -Continue remdesivir D4 of 5 -Obtain q48-72h inflammatory markers - ferritin, Ddimer, CRP, LDH -Anticoagulation per hospital protocol -Proning as able -Pulmonary on board -Consider TTE Guarded prognosis Radha Phillip MD [facility] ([facility]) Office [phone] Subjective Date of service: 08/22/20 Principal diagnosis: COVID-19 hypoxia Interval history: Patient remains on high flow nasal cannula 25 L, 55%, no desaturation overnight, noted mild hypotension. No acute events overnight, no fever. Objective - Exam Narrative Exam: physical exam deferred to minimize COVID-19 transmission during pandemic. Internal medicine physical examination notes reviewed. - Constitutional Vitals: Vital Signs Temp Pulse Resp BP Pulse Ox 97.9 F 62 20 89/36 96 08/22/20 05:06 08/22/20 05:06 08/22/20 05:06 08/22/20 05:09 08/22/20 05:06 Temperature -Last 24 Hours Temperature 97.9 F Temperature 98.4 F Temperature 98.4 F Temperature 98.0 F - Labs CBC & Chem 7: 08/22/20 04:23 08/22/20 04:23 Labs: Abnormal lab results 08/22/20 08/22/20 Range/Units 04:23 04:23 Hgb 7.7 L (10.1-14.3) gm/dl Hct 26.7 L (30.3-42.9) % MCV 57 L (79-97) fl MCH 16 L (28-32) pg MCHC 29 L (30-34) % RDW 20.2 H (13.2-15.2) % Plt Count 567 H (140-440) K/mm3 BUN 18 H (7-17) mg/dL Creatinine 0.5 L (0.6-1.2) mg/dL Glucose 223 H (65-100) mg/dL Lactate Dehydrogenase 296 H (91-180) units/L
[2020-08-22] MEDS: CHOLECALCIFEROL (VIT D3) 5,000 UNIT TAB PO SCH (09:35)
[2020-08-22] MEDS: ASCORBIC ACID 500 MG TAB PO SCH ×2 (09:35→22:04)
[2020-08-22] MEDS: ZINC SULFATE 220 MG CAP PO SCH (09:35)
--- NOTE | 2020-08-22 09:35 | Progress Note ---
Assessment and Plan 34 y/o obese female with known asthma, admitted with acute respiratory failure secondary COVID 19 08/16/20: Continue High Dose Steroids until off HFNC. Prone as tolerated if possible. Suggest increasing Midodrine to 5 TID as excess volume would not be good in this patient for oxygenation purposes. Guarded prognosis. 08/21/20: Continue High Dose steroids. PRN albuterol puffers, no nebulizers. Remdesivir. Prone as tolerated if possible. please document if done, incapable or refusal. Guarded prognosis. 1. Given her prior history of asthma, will change dex to solumedrol 60q6 2. Added PRN albuterol Puffers, [id number] for shortness of breath 3. Continue Remdesivir 4. Follow up Procal to determine abx need 5. No additional fluids unless absolutely necessary 6. Proning as tolerated during the day and sleep prone at night. Subjective Date of service: 08/22/20 Principal diagnosis: COVID-19 hypoxia Interval history: Down to 25 and 50%. Sats in the mid to high 90's. BP remains borderline. Started on midodrine by IMS. Objective Vital Signs - 12hr 08/21/20 08/22/20 08/22/20 23:16 05:06 05:09 Temperature 98.4 F 97.9 F Pulse Rate 74 62 Respiratory 20 20 Rate Blood Pressure 112/50 88/35 Blood Pressure 89/36 [Right] O2 Sat by Pulse 96 96 Oximetry 08/22/20 08:00 Temperature Pulse Rate Respiratory Rate Blood Pressure Blood Pressure [Right] O2 Sat by Pulse 96 Oximetry Constitutional: no acute distress, alert Eyes: non-icteric Neck: supple Effort: normal Ascultation: Bilateral: rales Cardiovascular: regular rate and rhythm (no mrg) Gastrointestinal: normoactive bowel sounds, soft, non-tender Integumentary: normal Extremities: no cyanosis, no edema, pink and warm Neurologic: normal mental status, non-focal exam, pupils equal and round, CN II- XII normal Psychiatric: mood appropriate, affect normal CBC and BMP: 08/22/20 04:23 08/22/20 04:23 ABG, PT/INR, D-dimer: PT/INR, D-dimer PT 12.9 Sec. (12.2-14.9) 08/19/20 05:00 INR 0.98 (0.87-1.13) 08/19/20 05:00 D-Dimer 147.52 ng/mlDDU (0-234) 08/22/20 04:23 Abnormal lab findings: Abnormal Labs 08/18/20 08/18/20 08/18/20 20:45 20:45 21:53 RBC 5.19 H Hgb 8.5 L Hct 28.1 L MCV 54 L MCH 16 L MCHC RDW 19.9 H Plt Count Seg Neuts % (Manual) 76.0 H Lymphocytes # (Manual) 1.0 L PT 12.1 L D-Dimer 284.01 H Sodium 136 L BUN Creatinine Glucose 125 H POC Glucose AST Alkaline Phosphatase Lactate Dehydrogenase C-Reactive Protein Total Protein Albumin Coronavirus (PCR) 08/18/20 08/19/20 08/19/20 21:53 05:00 05:00 RBC Hgb 8.0 L Hct 27.4 L MCV 55 L MCH 16 L MCHC 29 L RDW 19.5 H Plt Count Seg Neuts % (Manual) 78.0 H Lymphocytes # (Manual) 0.8 L PT D-Dimer Sodium BUN Creatinine 0.5 L Glucose 126 H 176 H POC Glucose AST Alkaline Phosphatase 138 H Lactate Dehydrogenase 534 H C-Reactive Protein 7.60 H Total Protein Albumin 3.8 L Coronavirus (PCR) 08/19/20 08/19/20 08/20/20 11:50 Unknown 04:02 RBC Hgb Hct MCV MCH MCHC RDW Plt Count Seg Neuts % (Manual) Lymphocytes # (Manual) PT D-Dimer Sodium BUN Creatinine 0.5 L Glucose 150 H POC Glucose 161 H AST 49 H Alkaline Phosphatase Lactate Dehydrogenase C-Reactive Protein Total Protein Albumin 3.3 L Coronavirus (PCR) Positive A 08/20/20 08/20/20 08/21/20 04:02 10:41 04:40 RBC Hgb 7.5 L Hct 25.9 L MCV 56 L MCH 16 L MCHC 29 L RDW 19.6 H Plt Count 460 H Seg Neuts % (Manual) Lymphocytes # (Manual) PT D-Dimer Sodium BUN Creatinine 0.5 L Glucose 177 H POC Glucose AST Alkaline Phosphatase Lactate Dehydrogenase 358 H C-Reactive Protein 1.60 H Total Protein 6.2 L Albumin 3.4 L Coronavirus (PCR) 08/22/20 08/22/20 04:23 04:23 RBC Hgb 7.7 L Hct 26.7 L MCV 57 L MCH 16 L MCHC 29 L RDW 20.2 H Plt Count 567 H Seg Neuts % (Manual) Lymphocytes # (Manual) PT D-Dimer Sodium BUN 18 H Creatinine 0.5 L Glucose 223 H POC Glucose AST Alkaline Phosphatase Lactate Dehydrogenase 296 H C-Reactive Protein Total Protein Albumin Coronavirus (PCR)
--- NOTE | 2020-08-22 14:03 | Progress Note ---
Assessment and Plan Assessment and plan: assessment: 34-year-old -[place] female who presents with acute respiratory failure with hypoxia secondary to Covid pneumonia Acute hypoxic respiratory failure secondary to Covid pneumonia Continue remdesivir and dexamethasone Pulmonology consulted Infectious disease consulted High flow nasal cannula oxygen Albuterol and montelukast Sepsis secondary to Covid pneumonia Dexamethasone and remdesivir Inflammatory markers 48 to 72 hours Procalcitonin 0.16, antibiotics have been discontinued Vitamin C and zinc Incentive spirometry Hyperglycemia secondary to steroid use Low-dose insulin sliding scale Borderline hypotension secondary to sepsis infection without hypotensive shock Low-dose midodrine Morbid obesity, unspecified Lifestyle change DVT prophylaxis: Lovenox CODE STATUS: Full Disposition: Continue Covid treatment with high flow nasal cannula oxygen, steroids, vitamins, remdesivir. History Interval history: 08/22/2020 patient continues to have dyspnea secondary to Covid infection. Continuing remdesivir and steroids. Patient continues to be on high flow oxygen. Hospitalist Physical - Constitutional Vitals: Temp Pulse Resp BP Pulse Ox 97.6 F 64 18 109/63 97 08/22/20 11:33 08/22/20 11:33 08/22/20 11:33 08/22/20 11:33 08/22/20 11:33 General appearance: Present: no acute distress, well-nourished - EENT Eyes: Present: PERRL, EOM intact ENT: hearing intact, clear oral mucosa - Neck Neck: Present: supple, normal ROM - Respiratory Respiratory effort: normal, other (Flow nasal cannula oxygen.) Respiratory: bilateral: CTA, negative: rales, rhonchi, wheezing - Cardiovascular Rhythm: regular Heart Sounds: Present: S1 & S2. Absent: rub, click - Extremities Extremities: no ischemia, No edema, normal temperature, normal color, Full ROM - Abdominal General gastrointestinal: soft, non-tender, non-distended, normal bowel sounds - Integumentary Integumentary: Present: clear, warm, dry, normal turgor - Psychiatric Psychiatric: appropriate mood/affect, intact judgment & insight, memory intact, cooperative - Neurologic Neurologic: CNII-XII intact, no focal deficits, moves all extremities Results - Labs CBC & Chem 7: 08/22/20 04:23 08/22/20 04:23 Labs: Laboratory Last Values WBC 8.3 K/mm3 (4.5-11.0) 08/22/20 04:23 RBC 4.72 M/mm3 (3.65-5.03) 08/22/20 04:23 Hgb 7.7 gm/dl (10.1-14.3) L 08/22/20 04:23 Hct 26.7 % (30.3-42.9) L 08/22/20 04:23 MCV 57 fl (79-97) L 08/22/20 04:23 MCH 16 pg (28-32) L 08/22/20 04:23 MCHC 29 % (30-34) L 08/22/20 04:23 RDW 20.2 % (13.2-15.2) H 08/22/20 04:23 Plt Count 567 K/mm3 (140-440) H 08/22/20 04:23 Add Manual Diff Complete 08/19/20 05:00 Total Counted 100 08/19/20 05:00 Seg Neuts % (Manual) 78.0 % (40.0-70.0) H 08/19/20 05:00 Band Neutrophils % 1.0 % 08/19/20 05:00 Lymphocytes % (Manual) 17.0 % (13.4-35.0) 08/19/20 05:00 Reactive Lymphs % (Man) 1.0 % 08/19/20 05:00 Monocytes % (Manual) 3.0 % (0.0-7.3) 08/19/20 05:00 Nucleated RBC % Not Reportable 08/19/20 05:00 Seg Neutrophils # Man 3.7 K/mm3 (1.8-7.7) 08/19/20 05:00 Band Neutrophils # 0.0 K/mm3 08/19/20 05:00 Lymphocytes # (Manual) 0.8 K/mm3 (1.2-5.4) L 08/19/20 05:00 Abs React Lymphs (Man) 0.0 K/mm3 08/19/20 05:00 Monocytes # (Manual) 0.1 K/mm3 (0.0-0.8) 08/19/20 05:00 Eosinophils # (Manual) 0.0 K/mm3 (0.0-0.4) 08/19/20 05:00 Basophils # (Manual) 0.0 K/mm3 (0.0-0.1) 08/19/20 05:00 Metamyelocytes # 0.0 K/mm3 08/19/20 05:00 Myelocytes # 0.0 K/mm3 08/19/20 05:00 Promyelocytes # 0.0 K/mm3 08/19/20 05:00 Blast Cells # 0.0 K/mm3 08/19/20 05:00 WBC Morphology Not Reportable 08/19/20 05:00 Hypersegmented Neuts Not Reportable 08/19/20 05:00 Hyposegmented Neuts Not Reportable 08/19/20 05:00 Hypogranular Neuts Not Reportable 08/19/20 05:00 Smudge Cells Not Reportable 08/19/20 05:00 Toxic Granulation Not Reportable 08/19/20 05:00 Toxic Vacuolation Not Reportable 08/19/20 05:00 Dohle Bodies Not Reportable 08/19/20 05:00 Pelger-Huet Anomaly Not Reportable 08/19/20 05:00 Meka Rods Not Reportable 08/19/20 05:00 Platelet Estimate Consistent w auto 08/19/20 05:00 Clumped Platelets Not Reportable 08/19/20 05:00 Plt Clumps, EDTA Not Reportable 08/19/20 05:00 Large Platelets Not Reportable 08/19/20 05:00 Giant Platelets Not Reportable 08/19/20 05:00 Platelet Satelliting Not Reportable 08/19/20 05:00 Plt Morphology Comment Not Reportable 08/19/20 05:00 RBC Morphology Not Reportable 08/19/20 05:00 Dimorphic RBCs Not Reportable 08/19/20 05:00 Polychromasia Not Reportable 08/19/20 05:00 Hypochromasia 1+ 08/19/20 05:00 Poikilocytosis Not Reportable 08/19/20 05:00 Anisocytosis 1+ 08/19/20 05:00 Microcytosis 1+ 08/19/20 05:00 Macrocytosis Not Reportable 08/19/20 05:00 Spherocytes Not Reportable 08/19/20 05:00 Pappenheimer Bodies Not Reportable 08/19/20 05:00 Sickle Cells Not Reportable 08/19/20 05:00 Target Cells Not Reportable 08/19/20 05:00 Tear Drop Cells Not Reportable 08/19/20 05:00 Ovalocytes Not Reportable 08/19/20 05:00 Helmet Cells Not Reportable 08/19/20 05:00 [place] Bodies Not Reportable 08/19/20 05:00 [place] Rings Not Reportable 08/19/20 05:00 [place] Cells Not Reportable 08/19/20 05:00 Bite Cells Not Reportable 08/19/20 05:00 Crenated Cell Not Reportable 08/19/20 05:00 Elliptocytes Not Reportable 08/19/20 05:00 Acanthocytes (Spur) Not Reportable 08/19/20 05:00 Rouleaux Not Reportable 08/19/20 05:00 Hemoglobin C Crystals Not Reportable 08/19/20 05:00 Schistocytes Not Reportable 08/19/20 05:00 Malaria parasites Not Reportable 08/19/20 05:00 David Bodies Not Reportable 08/19/20 05:00 Hem Pathologist Commnt No 08/19/20 05:00 PT 12.9 Sec. (12.2-14.9) 08/19/20 05:00 INR 0.98 (0.87-1.13) 08/19/20 05:00 APTT 35.8 Sec. (24.2-36.6) 08/18/20 21:53 D-Dimer 147.52 ng/mlDDU (0-234) 08/22/20 04:23 Sodium 138 mmol/L (137-145) 08/22/20 04:23 Potassium 4.6 mmol/L (3.6-5.0) 08/22/20 04:23 Chloride 104.6 mmol/L (98-107) 08/22/20 04:23 Carbon Dioxide 25 mmol/L (22-30) 08/22/20 04:23 Anion Gap 13 mmol/L 08/22/20 04:23 BUN 18 mg/dL (7-17) H 08/22/20 04:23 Creatinine 0.5 mg/dL (0.6-1.2) L 08/22/20 04:23 Estimated GFR > 60 ml/min 08/22/20 04:23 BUN/Creatinine Ratio 36 % 08/22/20 04:23 Glucose 223 mg/dL (65-100) H 08/22/20 04:23 POC Glucose 161 mg/dL (70-105) H 08/19/20 11:50 Calcium 8.6 mg/dL (8.4-10.2) 08/22/20 04:23 Ferritin 54.2 ng/mL (10.0-200.0) 08/22/20 04:23 Total Bilirubin 0.20 mg/dL (0.1-1.2) 08/21/20 04:40 Direct Bilirubin < 0.2 mg/dL (0-0.2) 08/21/20 04:40 Indirect Bilirubin 0.0 mg/dL 08/21/20 04:40 AST 33 units/L (5-40) 08/21/20 04:40 ALT 54 units/L (7-56) 08/21/20 04:40 Alkaline Phosphatase 126 units/L (35-129) 08/21/20 04:40 Lactate Dehydrogenase 296 units/L (91-180) H 08/22/20 04:23 C-Reactive Protein 0.30 mg/dL (0.00-1.30) 08/22/20 04:23 Total Protein 6.2 g/dL (6.3-8.2) L 08/21/20 04:40 Albumin 3.4 g/dL (3.9-5) L 08/21/20 04:40 Albumin/Globulin Ratio 1.2 % 08/21/20 04:40 Procalcitonin 0.16 ng/mL (<0.15) 08/20/20 10:41 Coronavirus (PCR) Positive (Negative) A 08/19/20 Unknown Microbiology: Microbiology 08/18/20 21:53 Peripheral/Venous Blood Culture - Preliminary NO GROWTH AFTER 72 HOURS 08/18/20 22:09 Peripheral/Venous Blood Culture - Preliminary NO GROWTH AFTER 72 HOURS Silvestre/IV: Voiding Method Toilet IV Catheter Type [Left Hand] INT / Saline Lock IV Catheter Type [Right Peripheral IV Antecubital] Active Medications - Current Medications Current Medications: Generic Name Dose Route Start Last Admin Trade Name Freq PRN Reason Stop Dose Admin Acetaminophen 650 mg 08/18/20 23:26 Acetaminophen 325 Mg Tab PO Q4H PRN Pain MILD(1-3)/Fever >100.5/CARPENTER Albuterol 2 puff 08/20/20 09:11 Albuterol 8.5 Gm Mdi Inhalation IH Q4HRT PRN Shortness Of Breath Alprazolam 0.25 mg 08/19/20 17:21 08/19/20 18:17 Alprazolam 0.25 Mg Tab PO 0.25 mg Q8H PRN Administration Anxiety Ascorbic Acid 1,000 mg 08/19/20 22:00 08/22/20 09:35 Ascorbic Acid 500 Mg Tab PO 1,000 mg BID VANESA Administration Cholecalciferol 5,000 unit 08/20/20 10:00 08/22/20 09:35 Cholecalciferol (Vit D3) 5,000 Unit Tab PO 5,000 unit DAILY VANESA Administration Enoxaparin Sodium 40 mg 08/19/20 22:00 08/21/20 21:39 Enoxaparin 40 Mg/0.4 Ml Inj SUB-Q 40 mg QDAY@2200 VANESA Administration Protocol Guaifenesin 10 ml 08/19/20 13:14 08/20/20 22:47 Guaifenesin Dm 200/20 Mg Oral Liqd 10 Ml PO 10 ml Q4H PRN Administration Cough REMDESIVIR 100 mg/ Sodium 250 mls @ 500 mls/hr 08/20/20 21:00 08/21/20 21:39 Chloride IV 08/23/20 21:29 500 mls/hr Q24HR@2100 [facility] Administration Magnesium Hydroxide 30 ml 08/18/20 23:26 Magnesium Hydroxide (Mom) Oral Liqd Udc PO Q4H PRN Constipation Methylprednisolone Sodium Succinate 60 mg 08/20/20 12:00 08/22/20 12:42 Methylprednisolone Sod Succinate 125 Mg/2 Ml Inj IV 60 mg Q6HR VANESA Administration Midodrine 2.5 mg 08/20/20 12:33 08/22/20 12:42 Midodrine 2.5 Mg Tab PO 2.5 mg TID@0800,1200,1600 VANESA Administration Montelukast Sodium 10 mg 08/21/20 22:00 08/21/20 21:40 Montelukast 10 Mg Tab PO 10 mg QHS VANESA Administration Morphine Sulfate 2 mg 08/18/20 23:26 08/19/20 12:23 Morphine 2 Mg/1 Ml Inj IV 2 mg Q4H PRN Administration Pain, Moderate (4-6) Ondansetron HCl 4 mg 08/18/20 23:26 Ondansetron 4 Mg/2 Ml Inj IV Q8H PRN Nausea And Vomiting Sodium Chloride 10 ml 08/19/20 10:00 08/22/20 09:35 Sodium Chloride 0.9% 10 Ml Flush Syringe IV 10 ml BID VANESA Administration Sodium Chloride 10 ml 08/18/20 23:26 Sodium Chloride 0.9% 10 Ml Flush Syringe IV PRN PRN LINE FLUSH Sodium Chloride 50 ml 08/19/20 11:30 08/21/20 21:39 Sodium Chloride 0.9% 50 Ml Ivpb IV 08/23/20 21:01 50 ml Q24HR@2100 VANESA Administration Zinc Sulfate 220 mg 08/20/20 10:00 08/22/20 09:35 Zinc Sulfate 220 Mg Cap PO 220 mg QDAY VANESA Administration
[2020-08-22] MEDS ORDERED: DEXTROSE 50% IN WATER (25GM) 50 ML SYRINGE IV PRN (14:24)
[2020-08-22] MEDS: INSULIN LISPRO 100 UNIT/ML SUB-Q SCH (17:23)
[2020-08-22] MEDS: REMDESIVIR 100 MG in SODIUM CHLORIDE 0.9% 250ML 250 ML IV SCH (22:04)
[2020-08-22] MEDS: ENOXAPARIN 40 MG/0.4 ML INJ SUB-Q SCH (22:05)
[2020-08-22] MEDS: MONTELUKAST 10 MG TAB PO SCH (22:05)
[2020-08-22] MEDS: SODIUM CHLORIDE 0.9% 50 ML IVPB IV SCH (22:40)
[2020-08-23] MEDS: methylPREDNISolone Sod Succinate 125 MG/2 ML INJ IV SCH ×4 (01:21→17:52)
[2020-08-23] MEDS: INSULIN LISPRO 100 UNIT/ML SUB-Q SCH ×4 (01:51→17:51)
--- NOTE | 2020-08-23 08:07 | Progress Note ---
Assessment and Plan Cultures: Blood culture no growth today COVID-19 positive as an outpatient A/P: 34-year-old female past medical history obesity, asthma, hypertension admitted with bilateral pneumonia #Acute hypoxemic respiratory failure: Likely secondary to COVID-19 infection. Hypoxic on admission to 88%. Improving, now on 5 L. #Acute sepsis: Resolved. Secondary to COVID-19. Procalcitonin is low. #COVID-19 pneumonia: Patient presented with a week of symptoms, chest x-ray with bilateral infiltrates. Inflammatory markers elevated. Markers improving. D- dimer normal. #Morbid Obesity Recs: -Check 6-minute walking test and consider home O2 -Continue steroids for 10 days -Continue remdesivir D5 of 5 -Obtain q48-72h inflammatory markers - ferritin, Ddimer, CRP, LDH -Anticoagulation per hospital protocol -Proning as able -Pulmonary on board Radha Phillip MD [facility] ([facility]) Office [phone] Subjective Date of service: 08/23/20 Principal diagnosis: COVID-19 hypoxia Interval history: Patient is now 5 L, no desaturation overnight, no hypotension. No acute events overnight, no fever. Objective - Exam Narrative Exam: physical exam deferred to minimize COVID-19 transmission during pandemic. Internal medicine physical examination notes reviewed. - Constitutional Vitals: Vital Signs Temp Pulse Resp BP Pulse Ox 97.7 F 59 L 22 111/55 100 08/23/20 06:08 08/23/20 06:08 08/23/20 06:08 08/23/20 06:08 08/23/20 06:08 Temperature -Last 24 Hours Temperature 97.7 F Temperature 97.8 F Temperature 97.6 F Temperature 97.6 F - Labs CBC & Chem 7: 08/22/20 04:23 08/22/20 04:23 Labs: Abnormal lab results 08/22/20 08/23/20 Range/Units 17:18 01:48 POC Glucose 249 H 245 H (70-105) mg/dL
[2020-08-23] MEDS: ZINC SULFATE 220 MG CAP PO SCH (09:19)
[2020-08-23] MEDS: CHOLECALCIFEROL (VIT D3) 5,000 UNIT TAB PO SCH (09:19)
[2020-08-23] MEDS: ASCORBIC ACID 500 MG TAB PO SCH ×2 (09:19→21:36)
[2020-08-23] MEDS: MIDODRINE 2.5 MG TAB PO SCH ×3 (09:20→17:46)
--- NOTE | 2020-08-23 09:20 | Progress Note ---
Assessment and Plan 34 y/o obese female with known asthma, admitted with acute respiratory failure secondary COVID 19 08/23/20: Tomorrow please change steroids to 40q8. Please continue to prone as tolerated if possible. 08/16/20: Continue High Dose Steroids until off HFNC. Prone as tolerated if possible. Suggest increasing Midodrine to 5 TID as excess volume would not be good in this patient for oxygenation purposes. Guarded prognosis. 08/21/20: Continue High Dose steroids. PRN albuterol puffers, no nebulizers. Remdesivir. Prone as tolerated if possible. please document if done, incapable or refusal. Guarded prognosis. 1. Given her prior history of asthma, will change dex to solumedrol 60q6 2. Added PRN albuterol Puffers, [id number] for shortness of breath 3. Continue Remdesivir 4. Follow up Procal to determine abx need 5. No additional fluids unless absolutely necessary 6. Proning as tolerated during the day and sleep prone at night. Subjective Date of service: 08/23/20 Principal diagnosis: COVID-19 hypoxia Interval history: Patient down to 5 liters NC now. Good sats. Objective Vital Signs - 12hr 08/23/20 08/23/20 08/23/20 00:03 03:54 04:43 Temperature 97.8 F Pulse Rate 57 L Respiratory 22 Rate Blood Pressure 111/42 O2 Sat by Pulse 98 97 96 Oximetry 08/23/20 06:08 Temperature 97.7 F Pulse Rate 59 L Respiratory 22 Rate Blood Pressure 111/55 O2 Sat by Pulse 100 Oximetry Constitutional: no acute distress, alert Eyes: non-icteric Neck: supple Effort: normal Ascultation: Bilateral: rales Cardiovascular: regular rate and rhythm (no mrg) Gastrointestinal: normoactive bowel sounds, soft, non-tender Integumentary: normal Extremities: no cyanosis, no edema, pink and warm Neurologic: normal mental status, non-focal exam, pupils equal and round, CN II- XII normal Psychiatric: mood appropriate, affect normal CBC and BMP: 08/22/20 04:23 08/22/20 04:23 ABG, PT/INR, D-dimer: PT/INR, D-dimer PT 12.9 Sec. (12.2-14.9) 08/19/20 05:00 INR 0.98 (0.87-1.13) 08/19/20 05:00 D-Dimer 147.52 ng/mlDDU (0-234) 08/22/20 04:23 Abnormal lab findings: Abnormal Labs 08/18/20 08/18/20 08/18/20 20:45 20:45 21:53 RBC 5.19 H Hgb 8.5 L Hct 28.1 L MCV 54 L MCH 16 L MCHC RDW 19.9 H Plt Count Seg Neuts % (Manual) 76.0 H Lymphocytes # (Manual) 1.0 L PT 12.1 L D-Dimer 284.01 H Sodium 136 L BUN Creatinine Glucose 125 H POC Glucose AST Alkaline Phosphatase Lactate Dehydrogenase C-Reactive Protein Total Protein Albumin Coronavirus (PCR) 08/18/20 08/19/20 08/19/20 21:53 05:00 05:00 RBC Hgb 8.0 L Hct 27.4 L MCV 55 L MCH 16 L MCHC 29 L RDW 19.5 H Plt Count Seg Neuts % (Manual) 78.0 H Lymphocytes # (Manual) 0.8 L PT D-Dimer Sodium BUN Creatinine 0.5 L Glucose 126 H 176 H POC Glucose AST Alkaline Phosphatase 138 H Lactate Dehydrogenase 534 H C-Reactive Protein 7.60 H Total Protein Albumin 3.8 L Coronavirus (PCR) 08/19/20 08/19/20 08/20/20 11:50 Unknown 04:02 RBC Hgb Hct MCV MCH MCHC RDW Plt Count Seg Neuts % (Manual) Lymphocytes # (Manual) PT D-Dimer Sodium BUN Creatinine 0.5 L Glucose 150 H POC Glucose 161 H AST 49 H Alkaline Phosphatase Lactate Dehydrogenase C-Reactive Protein Total Protein Albumin 3.3 L Coronavirus (PCR) Positive A 08/20/20 08/20/20 08/21/20 04:02 10:41 04:40 RBC Hgb 7.5 L Hct 25.9 L MCV 56 L MCH 16 L MCHC 29 L RDW 19.6 H Plt Count 460 H Seg Neuts % (Manual) Lymphocytes # (Manual) PT D-Dimer Sodium BUN Creatinine 0.5 L Glucose 177 H POC Glucose AST Alkaline Phosphatase Lactate Dehydrogenase 358 H C-Reactive Protein 1.60 H Total Protein 6.2 L Albumin 3.4 L Coronavirus (PCR) 01/08/22/20 08/22/20 04:23 04:23 17:18 RBC Hgb 7.7 L Hct 26.7 L MCV 57 L MCH 16 L MCHC 29 L RDW 20.2 H Plt Count 567 H Seg Neuts % (Manual) Lymphocytes # (Manual) PT D-Dimer Sodium BUN 18 H Creatinine 0.5 L Glucose 223 H POC Glucose 249 H AST Alkaline Phosphatase Lactate Dehydrogenase 296 H C-Reactive Protein Total Protein Albumin Coronavirus (PCR) 08/23/20 01:48 RBC Hgb Hct MCV MCH MCHC RDW Plt Count Seg Neuts % (Manual) Lymphocytes # (Manual) PT D-Dimer Sodium BUN Creatinine Glucose POC Glucose 245 H AST Alkaline Phosphatase Lactate Dehydrogenase C-Reactive Protein Total Protein Albumin Coronavirus (PCR)
--- NOTE | 2020-08-23 14:40 | Progress Note ---
Assessment and Plan Assessment and plan: assessment: 34-year-old -[place] female who presents with acute respiratory failure with hypoxia secondary to Covid pneumonia Acute hypoxic respiratory failure secondary to Covid pneumonia Continue remdesivir and dexamethasone Pulmonology consulted Infectious disease consulted Albuterol and montelukast Weaned off of high flow nasal cannula oxygen Currently on nasal cannula oxygen, about 5 L Sepsis secondary to Covid pneumonia Dexamethasone and remdesivir, per pulmonology recommendations, 40 mg every 8 on 08/24/2020 Inflammatory markers 48 to 72 hours Procalcitonin 0.16, antibiotics have been discontinued Vitamin C and zinc Incentive spirometry Hyperglycemia secondary to steroid use Low-dose insulin sliding scale Borderline hypotension secondary to sepsis infection without hypotensive shock Low-dose midodrine Morbid obesity, unspecified Lifestyle change DVT prophylaxis: Lovenox CODE STATUS: Full Disposition: Continue Covid treatment with high flow nasal cannula oxygen, steroids, vitamins, remdesivir. History Interval history: Patient seen, off high flow oxygen, saturations have improved. Patient is getting better, currently on nasal cannula oxygen. No fevers or chills. Hospitalist Physical - Physical exam Narrative exam: General appearance: Present: no acute distress, well-nourished - EENT Eyes: Present: PERRL, EOM intact ENT: hearing intact, clear oral mucosa - Neck Neck: Present: supple, normal ROM - Respiratory Respiratory effort: normal Respiratory: bilateral: CTA, nasal cannula oxygen, negative: rales, rhonchi, wheezing - Cardiovascular Rhythm: regular Heart Sounds: Present: S1 & S2. Absent: rub, click - Extremities Extremities: no ischemia, No edema, normal temperature, normal color, Full ROM - Abdominal General gastrointestinal: soft, non-tender, non-distended, normal bowel sounds - Integumentary Integumentary: Present: clear, warm, dry, normal turgor - Psychiatric Psychiatric: appropriate mood/affect, intact judgment & insight, memory intact, cooperative - Neurologic Neurologic: CNII-XII intact, no focal deficits, moves all extremities - Constitutional Vitals: Temp Pulse Resp BP Pulse Ox 98.3 F 66 24 145/80 97 08/23/20 11:23 08/23/20 11:23 08/23/20 11:23 08/23/20 11:23 08/23/20 11:23 General appearance: Present: no acute distress, well-nourished Results - Labs CBC & Chem 7: 08/22/20 04:23 08/22/20 04:23 Labs: Laboratory Last Values WBC 8.3 K/mm3 (4.5-11.0) 08/22/20 04:23 RBC 4.72 M/mm3 (3.65-5.03) 08/22/20 04:23 Hgb 7.7 gm/dl (10.1-14.3) L 08/22/20 04:23 Hct 26.7 % (30.3-42.9) L 08/22/20 04:23 MCV 57 fl (79-97) L 08/22/20 04:23 MCH 16 pg (28-32) L 08/22/20 04:23 MCHC 29 % (30-34) L 08/22/20 04:23 RDW 20.2 % (13.2-15.2) H 08/22/20 04:23 Plt Count 567 K/mm3 (140-440) H 08/22/20 04:23 Add Manual Diff Complete 08/19/20 05:00 Total Counted 100 08/19/20 05:00 Seg Neuts % (Manual) 78.0 % (40.0-70.0) H 08/19/20 05:00 Band Neutrophils % 1.0 % 08/19/20 05:00 Lymphocytes % (Manual) 17.0 % (13.4-35.0) 08/19/20 05:00 Reactive Lymphs % (Man) 1.0 % 08/19/20 05:00 Monocytes % (Manual) 3.0 % (0.0-7.3) 08/19/20 05:00 Nucleated RBC % Not Reportable 08/19/20 05:00 Seg Neutrophils # Man 3.7 K/mm3 (1.8-7.7) 08/19/20 05:00 Band Neutrophils # 0.0 K/mm3 08/19/20 05:00 Lymphocytes # (Manual) 0.8 K/mm3 (1.2-5.4) L 08/19/20 05:00 Abs React Lymphs (Man) 0.0 K/mm3 08/19/20 05:00 Monocytes # (Manual) 0.1 K/mm3 (0.0-0.8) 08/19/20 05:00 Eosinophils # (Manual) 0.0 K/mm3 (0.0-0.4) 08/19/20 05:00 Basophils # (Manual) 0.0 K/mm3 (0.0-0.1) 08/19/20 05:00 Metamyelocytes # 0.0 K/mm3 08/19/20 05:00 Myelocytes # 0.0 K/mm3 08/19/20 05:00 Promyelocytes # 0.0 K/mm3 08/19/20 05:00 Blast Cells # 0.0 K/mm3 08/19/20 05:00 WBC Morphology Not Reportable 08/19/20 05:00 Hypersegmented Neuts Not Reportable 08/19/20 05:00 Hyposegmented Neuts Not Reportable 08/19/20 05:00 Hypogranular Neuts Not Reportable 08/19/20 05:00 Smudge Cells Not Reportable 08/19/20 05:00 Toxic Granulation Not Reportable 08/19/20 05:00 Toxic Vacuolation Not Reportable 08/19/20 05:00 Dohle Bodies Not Reportable 08/19/20 05:00 Pelger-Huet Anomaly Not Reportable 08/19/20 05:00 Meka Rods Not Reportable 08/19/20 05:00 Platelet Estimate Consistent w auto 08/19/20 05:00 Clumped Platelets Not Reportable 08/19/20 05:00 Plt Clumps, EDTA Not Reportable 08/19/20 05:00 Large Platelets Not Reportable 08/19/20 05:00 Giant Platelets Not Reportable 08/19/20 05:00 Platelet Satelliting Not Reportable 08/19/20 05:00 Plt Morphology Comment Not Reportable 08/19/20 05:00 RBC Morphology Not Reportable 08/19/20 05:00 Dimorphic RBCs Not Reportable 08/19/20 05:00 Polychromasia Not Reportable 08/19/20 05:00 Hypochromasia 1+ 08/19/20 05:00 Poikilocytosis Not Reportable 08/19/20 05:00 Anisocytosis 1+ 08/19/20 05:00 Microcytosis 1+ 08/19/20 05:00 Macrocytosis Not Reportable 08/19/20 05:00 Spherocytes Not Reportable 08/19/20 05:00 Pappenheimer Bodies Not Reportable 08/19/20 05:00 Sickle Cells Not Reportable 08/19/20 05:00 Target Cells Not Reportable 08/19/20 05:00 Tear Drop Cells Not Reportable 08/19/20 05:00 Ovalocytes Not Reportable 08/19/20 05:00 Helmet Cells Not Reportable 08/19/20 05:00 [place] Bodies Not Reportable 08/19/20 05:00 [place] Rings Not Reportable 08/19/20 05:00 [place] Cells Not Reportable 08/19/20 05:00 Bite Cells Not Reportable 08/19/20 05:00 Crenated Cell Not Reportable 08/19/20 05:00 Elliptocytes Not Reportable 08/19/20 05:00 Acanthocytes (Spur) Not Reportable 08/19/20 05:00 Rouleaux Not Reportable 08/19/20 05:00 Hemoglobin C Crystals Not Reportable 08/19/20 05:00 Schistocytes Not Reportable 08/19/20 05:00 Malaria parasites Not Reportable 08/19/20 05:00 David Bodies Not Reportable 08/19/20 05:00 Hem Pathologist Commnt No 08/19/20 05:00 PT 12.9 Sec. (12.2-14.9) 08/19/20 05:00 INR 0.98 (0.87-1.13) 08/19/20 05:00 APTT 35.8 Sec. (24.2-36.6) 08/18/20 21:53 D-Dimer 147.52 ng/mlDDU (0-234) 08/22/20 04:23 Sodium 138 mmol/L (137-145) 08/22/20 04:23 Potassium 4.6 mmol/L (3.6-5.0) 08/22/20 04:23 Chloride 104.6 mmol/L (98-107) 08/22/20 04:23 Carbon Dioxide 25 mmol/L (22-30) 08/22/20 04:23 Anion Gap 13 mmol/L 08/22/20 04:23 BUN 18 mg/dL (7-17) H 08/22/20 04:23 Creatinine 0.5 mg/dL (0.6-1.2) L 08/22/20 04:23 Estimated GFR > 60 ml/min 08/22/20 04:23 BUN/Creatinine Ratio 36 % 08/22/20 04:23 Glucose 223 mg/dL (65-100) H 08/22/20 04:23 POC Glucose 213 mg/dL (70-105) H 08/23/20 11:21 Calcium 8.6 mg/dL (8.4-10.2) 08/22/20 04:23 Ferritin 54.2 ng/mL (10.0-200.0) 08/22/20 04:23 Total Bilirubin 0.20 mg/dL (0.1-1.2) 08/21/20 04:40 Direct Bilirubin < 0.2 mg/dL (0-0.2) 08/21/20 04:40 Indirect Bilirubin 0.0 mg/dL 08/21/20 04:40 AST 33 units/L (5-40) 08/21/20 04:40 ALT 54 units/L (7-56) 08/21/20 04:40 Alkaline Phosphatase 126 units/L (35-129) 08/21/20 04:40 Lactate Dehydrogenase 296 units/L (91-180) H 08/22/20 04:23 C-Reactive Protein 0.30 mg/dL (0.00-1.30) 08/22/20 04:23 Total Protein 6.2 g/dL (6.3-8.2) L 08/21/20 04:40 Albumin 3.4 g/dL (3.9-5) L 08/21/20 04:40 Albumin/Globulin Ratio 1.2 % 08/21/20 04:40 Procalcitonin 0.16 ng/mL (<0.15) 08/20/20 10:41 Coronavirus (PCR) Positive (Negative) A 08/19/20 Unknown Microbiology: Microbiology 08/18/20 21:53 Peripheral/Venous Blood Culture - Preliminary NO GROWTH AFTER 4 DAYS 08/18/20 22:09 Peripheral/Venous Blood Culture - Preliminary NO GROWTH AFTER 4 DAYS Silvestre/IV: Voiding Method Toilet IV Catheter Type [Left Hand] INT / Saline Lock IV Catheter Type [Right Peripheral IV Antecubital] Active Medications - Current Medications Current Medications: Generic Name Dose Route Start Last Admin Trade Name Freq PRN Reason Stop Dose Admin Acetaminophen 650 mg 08/18/20 23:26 Acetaminophen 325 Mg Tab PO Q4H PRN Pain MILD(1-3)/Fever >100.5/CARPENTER Albuterol 2 puff 08/20/20 09:11 Albuterol 8.5 Gm Mdi Inhalation IH Q4HRT PRN Shortness Of Breath Alprazolam 0.25 mg 08/19/20 17:21 08/19/20 18:17 Alprazolam 0.25 Mg Tab PO 0.25 mg Q8H PRN Administration Anxiety Ascorbic Acid 1,000 mg 08/19/20 22:00 08/23/20 09:19 Ascorbic Acid 500 Mg Tab PO 1,000 mg BID VANESA Administration Cholecalciferol 5,000 unit 08/20/20 10:00 08/23/20 09:19 Cholecalciferol (Vit D3) 5,000 Unit Tab PO 5,000 unit DAILY VANESA Administration Dextrose 50 ml 08/22/20 14:24 Dextrose 50% In Water (25gm) 50 Ml Syringe IV Q30MIN PRN Hypoglycemia Protocol Enoxaparin Sodium 40 mg 08/19/20 22:00 08/22/20 22:05 Enoxaparin 40 Mg/0.4 Ml Inj SUB-Q 40 mg QDAY@2200 VANESA Administration Protocol Guaifenesin 10 ml 08/19/20 13:14 08/20/20 22:47 Guaifenesin Dm 200/20 Mg Oral Liqd 10 Ml PO 10 ml Q4H PRN Administration Cough REMDESIVIR 100 mg/ Sodium 250 mls @ 500 mls/hr 08/20/20 21:00 08/22/20 22:04 Chloride IV 08/23/20 21:29 500 mls/hr Q24HR@2100 VANESA Administration Insulin Human Lispro 0 unit 08/22/20 18:00 08/23/20 13:15 Insulin Lispro 100 Unit/Ml SUB-Q 3 unit Q6HR VANESA Administration Protocol Magnesium Hydroxide 30 ml 08/18/20 23:26 Magnesium Hydroxide (Mom) Oral Liqd Udc PO Q4H PRN Constipation Methylprednisolone Sodium Succinate 60 mg 08/20/20 12:00 08/23/20 13:15 Methylprednisolone Sod Succinate 125 Mg/2 Ml Inj IV 60 mg Q6HR VANESA Administration Midodrine 2.5 mg 08/20/20 12:33 08/23/20 13:17 Midodrine 2.5 Mg Tab PO 2.5 mg TID@0800,1200,1600 VANESA Administration Montelukast Sodium 10 mg 08/21/20 22:00 08/22/20 22:05 Montelukast 10 Mg Tab PO 10 mg QHS VANESA Administration Morphine Sulfate 2 mg 08/18/20 23:26 08/19/20 12:23 Morphine 2 Mg/1 Ml Inj IV 2 mg Q4H PRN Administration Pain, Moderate (4-6) Ondansetron HCl 4 mg 08/18/20 23:26 Ondansetron 4 Mg/2 Ml Inj IV Q8H PRN Nausea And Vomiting Sodium Chloride 10 ml 08/19/20 10:00 08/23/20 09:19 Sodium Chloride 0.9% 10 Ml Flush Syringe IV 10 ml BID VANESA Administration Sodium Chloride 10 ml 08/18/20 23:26 Sodium Chloride 0.9% 10 Ml Flush Syringe IV PRN PRN LINE FLUSH Sodium Chloride 50 ml 08/19/20 11:30 08/22/20 22:40 Sodium Chloride 0.9% 50 Ml Ivpb IV 08/23/20 21:01 50 ml Q24HR@2100 VANESA Administration Zinc Sulfate 220 mg 08/20/20 10:00 08/23/20 09:19 Zinc Sulfate 220 Mg Cap PO 220 mg QDAY VANESA Administration
[2020-08-23] MEDS: REMDESIVIR 100 MG in SODIUM CHLORIDE 0.9% 250ML 250 ML IV SCH (21:35)
[2020-08-23] MEDS: SODIUM CHLORIDE 0.9% 50 ML IVPB IV SCH (21:36)
[2020-08-23] MEDS: ENOXAPARIN 40 MG/0.4 ML INJ SUB-Q SCH (21:36)
[2020-08-23] MEDS: MONTELUKAST 10 MG TAB PO SCH (21:37)
[2020-08-24] MEDS: INSULIN LISPRO 100 UNIT/ML SUB-Q SCH ×3 (01:05→13:12)
[2020-08-24] MEDS: methylPREDNISolone Sod Succinate 125 MG/2 ML INJ IV SCH ×2 (01:06→05:58)
[2020-08-24 06:46] LABS: C-Reactive Protein 0.1 mg/dL (0.00-1.30)
--- NOTE | 2020-08-24 08:13 | Progress Note ---
Assessment and Plan Cultures: Blood culture no growth today COVID-19 positive as an outpatient A/P: 34-year-old female past medical history obesity, asthma, hypertension admitted with bilateral pneumonia #Acute hypoxemic respiratory failure: Likely secondary to COVID-19 infection. Hypoxic on admission to 88%. Improving, now on 4 L. #Acute sepsis: Resolved. Secondary to COVID-19. Procalcitonin is low. #COVID-19 pneumonia: Patient presented with a week of symptoms, chest x-ray with bilateral infiltrates. Inflammatory markers elevated. Markers improving. D- dimer normal. #Morbid Obesity Recs: -Check 6-minute walking test and consider home O2 -Continue steroids for 10 days per pulmonary -Completed remdesivir -Obtain q48-72h inflammatory markers - ferritin, Ddimer, CRP, LDH -Anticoagulation per hospital protocol -Proning as able -Pulmonary on board Dr Soria rounding this weekend Radha Phillip MD [facility] ([facility]) Office [phone] Subjective Date of service: 08/24/20 Principal diagnosis: COVID-19 hypoxia Interval history: Patient is now 4 L, no desaturation overnight, no hypotension. No acute events overnight, no fever. Objective - Exam Narrative Exam: physical exam deferred to minimize COVID-19 transmission during pandemic. Internal medicine physical examination notes reviewed. - Constitutional Vitals: Vital Signs Temp Pulse Resp BP Pulse Ox 97.9 F 62 18 123/56 100 08/24/20 04:42 08/24/20 04:42 08/23/20 22:07 08/24/20 04:42 08/24/20 08:00 Temperature -Last 24 Hours Temperature 97.9 F Temperature 98.1 F Temperature 98.4 F Temperature 98.3 F - Labs CBC & Chem 7: 08/22/20 04:23 08/22/20 04:23 Labs: Abnormal lab results 08/23/20 08/23/20 08/23/20 Range/Units 06:06 11:21 16:38 POC Glucose 202 H 213 H 261 H (70-105) mg/dL Lactate Dehydrogenase (91-180) units/L 08/23/20 08/24/20 Range/Units 22:32 04:23 POC Glucose 226 H (70-105) mg/dL Lactate Dehydrogenase 208 H (91-180) units/L
--- NOTE | 2020-08-24 08:32 | Progress Note ---
Assessment and Plan 34 y/o obese female with known asthma, admitted with acute respiratory failure secondary COVID 19 08/24/20: Change to 40q8 today. Can likely drop to 60 daily on Thursday and taper as follows: 60 daily for 4 days, 40 daily for 4 days, 20 daily for 4 days, then stop. Continue proning as tolerated. Patient not funded so not sure if she can afford oxygen so please continue to wean as tolerated. Will see PRN over the weekend. 08/23/20: Tomorrow please change steroids to 40q8. Please continue to prone as tolerated if possible. 08/16/20: Continue High Dose Steroids until off HFNC. Prone as tolerated if possible. Suggest increasing Midodrine to 5 TID as excess volume would not be good in this patient for oxygenation purposes. Guarded prognosis. 08/21/20: Continue High Dose steroids. PRN albuterol puffers, no nebulizers. Remdesivir. Prone as tolerated if possible. please document if done, incapable or refusal. Guarded prognosis. 1. Given her prior history of asthma, will change dex to solumedrol 60q6 2. Added PRN albuterol Puffers, [id number] for shortness of breath 3. Continue Remdesivir 4. Follow up Procal to determine abx need 5. No additional fluids unless absolutely necessary 6. Proning as tolerated during the day and sleep prone at night. Subjective Date of service: 08/24/20 Principal diagnosis: COVID-19 hypoxia Interval history: Stable on 4 liters. Objective Vital Signs - 12hr 08/23/20 08/23/20 08/23/20 21:18 22:00 22:07 Temperature 98.1 F Pulse Rate 62 Respiratory 18 Rate Blood Pressure 139/69 O2 Sat by Pulse 99 100 98 Oximetry 08/24/20 08/24/20 08/24/20 02:00 04:42 08:00 Temperature 97.9 F Pulse Rate 62 Respiratory Rate Blood Pressure 123/56 O2 Sat by Pulse 100 97 100 Oximetry Constitutional: no acute distress, alert Eyes: non-icteric Neck: supple Effort: normal Ascultation: Bilateral: rales Cardiovascular: regular rate and rhythm (no mrg) Gastrointestinal: normoactive bowel sounds, soft, non-tender Integumentary: normal Extremities: no cyanosis, no edema, pink and warm Neurologic: normal mental status, non-focal exam, pupils equal and round, CN II- XII normal Psychiatric: mood appropriate, affect normal CBC and BMP: 08/22/20 04:23 08/22/20 04:23 ABG, PT/INR, D-dimer: PT/INR, D-dimer PT 12.9 Sec. (12.2-14.9) 08/19/20 05:00 INR 0.98 (0.87-1.13) 08/19/20 05:00 D-Dimer 67.19 ng/mlDDU (0-234) 08/24/20 04:23 Abnormal lab findings: Abnormal Labs 08/18/20 08/18/20 08/18/20 20:45 20:45 21:53 RBC 5.19 H Hgb 8.5 L Hct 28.1 L MCV 54 L MCH 16 L MCHC RDW 19.9 H Plt Count Seg Neuts % (Manual) 76.0 H Lymphocytes # (Manual) 1.0 L PT 12.1 L D-Dimer 284.01 H Sodium 136 L BUN Creatinine Glucose 125 H POC Glucose AST Alkaline Phosphatase Lactate Dehydrogenase C-Reactive Protein Total Protein Albumin Coronavirus (PCR) 08/18/20 08/19/20 08/19/20 21:53 05:00 05:00 RBC Hgb 8.0 L Hct 27.4 L MCV 55 L MCH 16 L MCHC 29 L RDW 19.5 H Plt Count Seg Neuts % (Manual) 78.0 H Lymphocytes # (Manual) 0.8 L PT D-Dimer Sodium BUN Creatinine 0.5 L Glucose 126 H 176 H POC Glucose AST Alkaline Phosphatase 138 H Lactate Dehydrogenase 534 H C-Reactive Protein 7.60 H Total Protein Albumin 3.8 L Coronavirus (PCR) 08/19/20 08/19/20 08/20/20 11:50 Unknown 04:02 RBC Hgb Hct MCV MCH MCHC RDW Plt Count Seg Neuts % (Manual) Lymphocytes # (Manual) PT D-Dimer Sodium BUN Creatinine 0.5 L Glucose 150 H POC Glucose 161 H AST 49 H Alkaline Phosphatase Lactate Dehydrogenase C-Reactive Protein Total Protein Albumin 3.3 L Coronavirus (PCR) Positive A 08/20/20 08/20/20 08/21/20 04:02 10:41 04:40 RBC Hgb 7.5 L Hct 25.9 L MCV 56 L MCH 16 L MCHC 29 L RDW 19.6 H Plt Count 460 H Seg Neuts % (Manual) Lymphocytes # (Manual) PT D-Dimer Sodium BUN Creatinine 0.5 L Glucose 177 H POC Glucose AST Alkaline Phosphatase Lactate Dehydrogenase 358 H C-Reactive Protein 1.60 H Total Protein 6.2 L Albumin 3.4 L Coronavirus (PCR) 08/22/20 08/22/20 08/22/20 04:23 04:23 17:18 RBC Hgb 7.7 L Hct 26.7 L MCV 57 L MCH 16 L MCHC 29 L RDW 20.2 H Plt Count 567 H Seg Neuts % (Manual) Lymphocytes # (Manual) PT D-Dimer Sodium BUN 18 H Creatinine 0.5 L Glucose 223 H POC Glucose 249 H AST Alkaline Phosphatase Lactate Dehydrogenase 296 H C-Reactive Protein Total Protein Albumin Coronavirus (PCR) 08/23/20 08/23/20 08/23/20 01:48 06:06 11:21 RBC Hgb Hct MCV MCH MCHC RDW Plt Count Seg Neuts % (Manual) Lymphocytes # (Manual) PT D-Dimer Sodium BUN Creatinine Glucose POC Glucose 245 H 202 H 213 H AST Alkaline Phosphatase Lactate Dehydrogenase C-Reactive Protein Total Protein Albumin Coronavirus (PCR) 08/23/20 08/23/20 08/24/20 16:38 22:32 04:23 RBC Hgb Hct MCV MCH MCHC RDW Plt Count Seg Neuts % (Manual) Lymphocytes # (Manual) PT D-Dimer Sodium BUN Creatinine Glucose POC Glucose 261 H 226 H AST Alkaline Phosphatase Lactate Dehydrogenase 208 H C-Reactive Protein Total Protein Albumin Coronavirus (PCR)
[2020-08-24] MEDS: MIDODRINE 2.5 MG TAB PO SCH ×2 (09:06→13:11)
[2020-08-24] MEDS: ZINC SULFATE 220 MG CAP PO SCH (09:06)
[2020-08-24] MEDS: CHOLECALCIFEROL (VIT D3) 5,000 UNIT TAB PO SCH (09:06)
[2020-08-24] MEDS: ASCORBIC ACID 500 MG TAB PO SCH (09:06)
[2020-08-24 13:30] VITALS: BP 137/74
[2020-08-24] MEDS ORDERED: methylPREDNISolone Sod Succinate 40 MG/1 ML INJ IV SCH (14:00)
--- NOTE | 2020-08-24 16:03 | Discharge Summary ---
Providers - Providers Date of Admission: 08/18/20 22:53 Attending physician: ZHAO RUSSELL MD 08/18/20 23:26 Consult to Physician [CONS] Routine Comment: Consulting Provider: BETY CARROLL Physician Instructions: Reason For Exam: PNEUMONIA/ R/O COVID 19 08/19/20 05:29 Consult to Physician [CONS] Routine Comment: Consulting Provider: ROBERT BARRAGAN Physician Instructions: Reason For Exam: Pneumonia. Rule out COVID-19. 08/19/20 16:34 Consult to Physician [CONS] Routine Comment: Consulting Provider: AVILA SULTANA Physician Instructions: Reason For Exam: hypoxic respiratory failure Primary care physician: SOCIAL WORK COORDINATOR Hospitalization Reason for admission: Acute hypoxic respiratory failure Condition: Good Hospital course: 34-year-old female with past medical history of asthma, hypertension who presented with acute dyspnea. She was diagnosed with COVID-19 at outside facility, came to see [facility] for shortness of breath. Chest x-ray showed bilateral pulmonary pneumonia. Patient was admitted to the hospital, infectious disease and pulmonary were consulted. Patient was started on remde sivir and steroids. Patient was started on high flow oxygen. Throughout her hospital course, patient was weaned down appropriately and patient was satting at about 93% on room air with walking. Patient was tapered on steroids, will continue taper at home. Advised to return to hospital if having any difficulty breathing. Patient verbalized understanding of plan. Disposition: TO HOME OR SELFCARE - Discharge Diagnoses (1) Acute hypoxemic respiratory failure due to COVID-19 Status: Acute (2) COVID-19 Status: Acute (3) Pneumonia Status: Acute Qualifiers: Laterality: bilateral Lung location: unspecified part of lung Core Measure Documentation - Palliative Care Palliative Care/ Comfort Measures: Not Applicable - Core Measures Any of the following diagnoses?: none Exam - Physical Exam Narrative exam: General appearance: Present: no acute distress, well-nourished - EENT Eyes: Present: PERRL, EOM intact ENT: hearing intact, clear oral mucosa - Neck Neck: Present: supple, normal ROM - Respiratory Respiratory effort: Normal Respiratory: bilateral: CTA, nasal cannula oxygen, negative: rales, rhonchi, wheezing - Cardiovascular Rhythm: regular Heart Sounds: Present: S1 & S2. Absent: rub, click - Extremities Extremities: no ischemia, No edema, normal temperature, normal color, Full ROM - Abdominal General gastrointestinal: soft, non-tender, non-distended, normal bowel sounds - Integumentary Integumentary: Present: clear, warm, dry, normal turgor - Psychiatric Psychiatric: appropriate mood/affect, intact judgment & insight, memory intact, cooperative - Neurologic Neurologic: CNII-XII intact, no focal deficits, moves all extremities - Constitutional Vitals: Temp Pulse Resp BP Pulse Ox 98.6 F 65 24 137/74 93 08/24/20 11:26 08/24/20 11:26 08/24/20 11:08/24/20 11:08/24/20 11:53 Plan Activity: no restrictions Diet: regular Plan of Treatment: Please take steroids as prescribed. Start with taper in the following order: Days 1-3, 4-7, 811, 1215. Please finish all tablets. Please return to the hospital if you are having any issues breathing. Follow up with: PRIMARY CARE, [Primary Care Provider] - 3-5 Days Prescriptions: predniSONE [Deltasone] 40 mg PO BID 3 Days #12 tablet predniSONE [Deltasone] 60 mg PO QDAY 4 Days #12 tab predniSONE [Deltasone] 40 mg PO DAILY 4 Days #8 tablet predniSONE [Deltasone] 20 mg PO QDAY 4 Days #4 tab
== END 2020-08-24 18:00 | disposition home or self-care (01) | DRG 871 ==
LOC: ED 18:29 → OBSVTOIN 22:53 → 3A 22:53
PROVIDERS: ADMIT Internal Medicine Geriatric Medicine; ATTEND Family Medicine
PROC: 5A0935A Assistance with Respiratory Ventilation, Less than 24 Consecutive Hours, High Flow/Velocity Cannula (ICD-10-PCS; 2020-08-19)
PROC: XW033E5 Introduction of Remdesivir Anti-infective into Peripheral Vein, Percutaneous Approach, New Technology Group 5 (ICD-10-PCS; principal; 2020-08-20)
PROC: 5A0935A Assistance with Respiratory Ventilation, Less than 24 Consecutive Hours, High Flow/Velocity Cannula (ICD-10-PCS; 2020-08-20)
DX: A41.9 Sepsis, unspecified organism (principal); U07.1 COVID-19; J12.82 Pneumonia due to coronavirus disease 2019; J80 Acute respiratory distress syndrome; J45.909 Unspecified asthma, uncomplicated; I10 Essential (primary) hypertension; E28.2 Polycystic ovarian syndrome; E66.01 Morbid (severe) obesity due to excess calories; R73.9 Hyperglycemia, unspecified; T38.0X5A Adverse effect of glucocorticoids and synthetic analogues, initial encounter; I95.9 Hypotension, unspecified; Y92.89 Other specified places as the place of occurrence of the external cause; Z98.51 Tubal ligation status; Z79.899 Other long term (current) drug therapy; Z79.891 Long term (current) use of opiate analgesic; Z79.01 Long term (current) use of anticoagulants; Z68.39 Body mass index [BMI] 39.0-39.9, adult
CPT/HCPCS: 36415; 71046; 80048; 80053; 80076; 82728; 82947; 82962; 83615; 84145; 85007; 85025; 85027; 85379; 85610; 85730; 86140; 87040; 93005; 94640; 94760; 96374; G0378; J0456; J0696; J1100; J1650; J1815; J2270; J2920; J2930; J8540; U0003